=== PATIENT | female | born 1940 | race Caucasian/White ===

== ENCOUNTER 2020-08-04 09:48 | Outpatient (CLI) | payer MEDICARE, SELFPAY | END 2020-08-04 09:49 | disposition home or self-care (01) | LOC: ANHAUDASC 09:49 | PROVIDERS: PCP Family Medicine; Visit Provider Otolaryngology | DX: H93.13 Tinnitus, bilateral (principal); H90.3 Sensorineural hearing loss, bilateral | CPT/HCPCS: 92557; 92567 ==

== ENCOUNTER 2022-09-19 15:18 | Outpatient (CLI) | payer MEDICARE, SELFPAY ==
--- NOTE | ~2022-09-19 | XR_ITS ---
Clinical Indication: Shortness of breath PA and lateral views of the chest: Comparison: 09/11/2019 Findings: The lungs are clear, without evidence of focal consolidation or pleural effusion. Cardiome diastinal silhouette is within normal limits. Bilateral shoulder arthroplasties in place. Vertebropla sty cement noted at what is probably L1. Impression: Clear lungs. Reviewed, dictated and finalized at location [] NTOLOGICAL PHYSIOTHERAPIST Impression: Clear lungs.
== END 2022-09-19 15:19 | disposition home or self-care (01) ==
PROVIDERS: PCP Family Medicine; Visit Provider Nurse Practitioner Family
DX: R06.02 Shortness of breath (principal)
CPT/HCPCS: 71046

== ENCOUNTER → 2023-10-16 10:34 | Outpatient (CLI) | payer MEDICARE, SELFPAY ==
--- NOTE | ~2023-10-16 | XR_ITS ---
XR chest 2V DATE: 10/16/2023 10:57 INDICATION: Chronic obstructive pulmonary disease TECHNIQUE: 2 views COMPARISON: 09/19/2022 PA and lateral chest FINDINGS: Heart size is within normal range. There is thoracic aortic calcification and mild tortuosi ty. No hilar or mediastinal enlargement. Bilateral hyperinflation suggesting obstructive airways disease. No pulmonary infiltrate or consolida tion, pleural effusion or pulmonary vascular congestion or pneumothorax is detected. There is diffuse osteopenia. There is prominent dextroscoliosis of the thoracolumbar spine. Bilateral glenohumeral joint replacement. Fracture deformity and vertebroplasty at L1. Status post posterior lumbar surgical fusion. IMPRESSION: Moderate hyperinflation; no active cardiopulmonary disease Aortic atherosclerosis Reviewed, dictated and finalized at location L. ACTER ACTRESS
== END ==
PROVIDERS: PCP Nurse Practitioner Family; Visit Provider Nurse Practitioner Family
DX: J44.9 Chronic obstructive pulmonary disease, unspecified (principal); I70.0 Atherosclerosis of aorta
CPT/HCPCS: 71046

== ENCOUNTER 2024-02-18 13:31 | Outpatient (CLI) | payer MEDICARE, SELFPAY ==
[2024-02-18 14:08] VITALS: PULSE 84; O2SAT 96
[2024-02-18 14:10] VITALS: PULSE 91; O2SAT 96
[2024-02-18 14:11] VITALS: PULSE 94; O2SAT 96
--- NOTE | 2024-02-18 14:19 | HOMEO2EVAL ---
Evaluation was performed at [facility] Home Oxygen Evaluation RC: Home Oxygen (O2) Evaluation Start: 02/18/24 14:16 Freq: Status: Active Protocol: RPE Activity Type Activity Date Activity User E-sign Co-sign Detail Recorded Client Recorded Date Recorded By Document 02/18/24 14:08 KRM [email or web address] 02/18/24 14:18 KRM Document 02/18/24 14:10 KRM [email or web address] 02/18/24 14:18 KRM Document 02/18/24 14:11 KRM [email or web address] 02/18/24 14:18 KRM 02/18/24 02/18/24 02/18/24 14:08 14:10 14:11 Home O2 Evaluation [Oxygen] -Test Phase Resting Exercise Exercise -Oxygen Delivery Room Air Room Air Room Air [Pulse Oximetry] -Pulse Oximetry (90-100 %) 96 96 96 [Pulse Rate] -Pulse Rate (60-100 beats/min) 84 91 94 [Evaluation] -Activity Tolerance Fair Fair [Exercise] -Ambulation Distance (feet) 250 -Ambulation Distance (meters) 76.19 [Comments] -Home Oxygen Evaluation Comments PT. STOPPED TESTING AFTER WALKING 3 MINS. NO SUPPLEMENTAL O2 NEEDED AT THIS TIME. [Charges] -Evaluation Charges O2 Evaluation by Pulmonary
--- NOTE | 2024-02-18 17:00 | WPDPFTINT ---
PFT Procedure Performed PFT Procedure Performed Spirometry with Pre/Post Bronchodilator Plethysmography (Lung Vol) Diffusing Cap (DLCO) Flow Vol Loop PFT Interpretation This is a pulmonary function test with pre and post-bronchodilator spirometry, plethysmography and diffusing capacity. The test was performed and results interpreted in accordance with the 2019 and 2005 ATS/ERS Task Force guidelines respectively using the Global Lung Function Initiative-2012 reference equations. Patient demonstrated good effort and cooperation. Reproducibility criteria were met. The quality of the pre bronchodilator spirometry maneuver was Grade A and post bronchodilator spirometry maneuver was Grade A. Findings: Spirometry: There is decreased maximal expiratory airflow at all lung volumes with concave expiratory flow tracing. The contour the inspiratory flow tracing is normal. The pre bronchodilator FVC is 2.00 L, 95% predicted. The pre bronchodilator FEV1 is 1.09 L, 68% predicted. The pre bronchodilator FEV1: FVC ratio is 55%. The post bronchodilator FVC is 2.06 L, representing a 3% increase. The post bronchodilator FEV1 is 1.11 L, representing a 1% increase. The post bronchodilator FEV1: FVC ratio is 54%. Plethysmography: The total lung capacity is 4.69 L, 106% predicted. The functional residual capacity is 3.35 L, 131% predicted. The residual volume is 2.57 L, 115% predicted. Diffusing capacity: The diffusing capacity unadjusted for hemoglobin and carboxyhemoglobin is 9.3, 53% predicted. The diffusing capacity adjusted for alveolar volume is 3.26, 76% predicted. In comparison to previous pulmonary function testing on 08/24/2016 the post bronchodilator FVC is unchanged from 2.20 L to 2.06 L. The post bronchodilator FEV1 is unchanged from 1.25 L to 1.11 L. The total lung capacity is unchanged from 4.31 L to 4.69 L. The functional residual capacity is increased from 2.42 L to 3.35 L. The residual volume is increased from 1.87 L to 2.57 L. The diffusing capacity unadjusted for hemoglobin and carboxyhemoglobin is decreased from 13.1 to 9.3. The diffusing capacity adjusted for alveolar volume is unchanged from 3.67 to 3.26. Impression: There is a moderate obstructive abnormality. There is no significant improvement after inhaling a single dose of albuterol. The lung volumes are normal. The diffusing capacity unadjusted for hemoglobin and carboxyhemoglobin is moderately decreased and normalizes when adjusted for alveolar volume. In comparison to previous pulmonary function testing on 08/24/2016 there has been a greater than anticipated time dependent increase in the functional residual capacity and residual volume. There has been a greater than anticipated time dependent decrease in the diffusing capacity unadjusted for hemoglobin and carboxyhemoglobin with no significant change in the FVC, FEV1, total lung capacity and diffusing capacity adjusted for alveolar volume. Clinical correlation is recommended.
== END 2024-02-18 13:32 | disposition home or self-care (01) ==
LOC: ANHPFT 13:32
PROVIDERS: PCP Family Medicine; Visit Provider Physician Assistant
DX: J44.9 Chronic obstructive pulmonary disease, unspecified (principal); I73.9 Peripheral vascular disease, unspecified; I25.10 Atherosclerotic heart disease of native coronary artery without angina pectoris; Z01.812 Encounter for preprocedural laboratory examination; R94.2 Abnormal results of pulmonary function studies
CPT/HCPCS: 94060; 94618; 94726; 94729

== ENCOUNTER 2024-02-29 02:42 | Day surgery (SDC) | payer MEDICARE, SELFPAY ==
[2024-02-25 14:41] VITALS: BMI 26.0
--- NOTE | 2024-02-29 08:05 | WPDANESEPPF ---
Anes - Initial Pre Proc Eval Procedure: Operation Date: 02/29/24 09:30 Proposed Procedures p Esophagogastroduodenoscopy - Mychal Jose MD Date/Time: 02/29/24 08:05 Surgeon: Mychal Jose MD Pre Op Diagnosis: Dysphagia Patient Data Age: 83 Gender: F Height: 1.52 m Weight: 60.5 kg Allergies Allergy/AdvReac Type Severity Reaction Status Date / Time levofloxacin Allergy Intermediate rash, Verified 02/29/24 08:06 vomiting, dizziness Sulfa (Sulfonamide Allergy Mild HIVES Verified 02/29/24 08:06 Antibiotics) adhesive tape Allergy Unknown Rash Verified 02/29/24 08:06 codeine Allergy Unknown Nausea Verified 02/29/24 08:06 erythromycin base Allergy Unknown Rash Verified 02/29/24 08:06 Penicillins Allergy Unknown Rash Verified 02/29/24 08:06 sulfanilamide Allergy Unknown Rash Verified 02/29/24 08:06 trazodone AdvReac Intermediate Dizziness Verified 02/29/24 08:06 Home Medications Medication Instructions Recorded Confirmed Type budesonide 160 mcg-glycopyr 9 2 inh inhalation BID #32.1 grams 07/09/23 02/29/24 Rx mcg-formot 4.8 mcg/actuation HFA inhaler (Breztri Aerosphere) atorvastatin 20 mg tablet 20 mg PO DAILY #90 tabs 11/19/23 02/29/24 Rx sertraline 25 mg tablet 25 mg PO DAILY #30 tabs 11/19/23 02/29/24 Rx albuterol sulfate 90 mcg/actuation See Rx Instructions .Route 12/03/23 02/29/24 Rx aerosol inhaler .COMPLEX #36 grams Patient hx anesthesia problems: none Family hx anesthesia problems: none Results Review: All pre-operative results and documents have been reviewed as part of the pre-operative evaluation. [facility] Past Medical History Medical History (Updated 02/29/24 @ 08:06 by Danie Peraza DO) Anemia Chronic low back pain Hyperlipidemia IBS (irritable bowel syndrome) Lumbar spondylosis Mitral valve insufficiency Obese Osteoarthrosis of knee Surgical History Surgical History (Updated 02/29/24 @ 08:06 by Danie Peraza DO) H/O Spinal surgery History of hysterectomy Family History Family History Mother Family history of malignant neoplasm of brain Father Family history of coronary artery disease Sibling No problems noted. Other Family history of malignant neoplasm of male breast Social History Social History Smoking packs per day: 0.5 Smoking cigarettes per day: 10.0 Years smoked: 40 Smoking pack-years: 20.00 Smoking status: Current every day smoker Tobacco type: cigarettes Second hand tobacco smoke exposure: No Alcohol intake: never Substance use: never Substance use type: does not use Lack of Transportation: No Lack of Food: Never True Current Housing: I Have Housing Concerned About Future Housing: No Difficulty Paying Gas/Electric Bills: No Difficulty Paying for Meds: No Currently Unemployed: No Education: High School Diploma/GED Difficulty w/ Childcare or Family Care: No Living arrangements: with family 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 Informed Consent: The patient's anesthetic plan and its attendant risks and benefits were discussed with the patient/family/POA. Questions were solicited and answers provided to the satisfaction of the patient/f
[2024-02-29 08:09] VITALS: BP 132/72; PULSE 92; RESP 16; TEMP 36.4; O2SAT 96
[2024-02-29] MEDS: LACTATED RINGERS 1,000 ML 150 ML IV CONT (08:18)
--- NOTE | 2024-02-29 08:50 | WPDHPUPDATE1 ---
History and Physical Update Update Date/Time: 02/29/24 08:50 History and Physical has been reviewed, including an updated exam of the patient. There are NO changes in the patient's condition. Risks, benefits, and alternatives have been discussed and questions answered. Patient agrees to proceed with procedure.
[2024-02-29 09:03] VITALS: BP 101/51; PULSE 80; RESP 23; O2SAT 100
[2024-02-29 09:13] VITALS: BP 121/60; PULSE 78; RESP 22; O2SAT 100
[2024-02-29 09:23] VITALS: BP 108/68; PULSE 80; RESP 25; O2SAT 100
== END 2024-02-29 09:26 | disposition home or self-care (01) ==
PROVIDERS: PCP Family Medicine; Visit Provider Internal Medicine Gastroenterology
PROC: 0DJ08ZZ Inspection of Upper Intestinal Tract, Via Natural or Artificial Opening Endoscopic (ICD-10-PCS; CPT 43235; principal; 2024-02-29 09:30)
DX: K20.90 Esophagitis, unspecified without bleeding (principal); D64.9 Anemia, unspecified; E78.5 Hyperlipidemia, unspecified; K58.9 Irritable bowel syndrome, unspecified; M43.06 Spondylolysis, lumbar region; G89.29 Other chronic pain; M54.50 Low back pain, unspecified; I34.0 Nonrheumatic mitral (valve) insufficiency; F17.210 Nicotine dependence, cigarettes, uncomplicated; Z79.51 Long term (current) use of inhaled steroids; Z98.890 Other specified postprocedural states; Z98.1 Arthrodesis status; Z80.8 Family history of malignant neoplasm of other organs or systems; Z80.3 Family history of malignant neoplasm of breast; Z82.49 Family history of ischemic heart disease and other diseases of the circulatory system
CPT/HCPCS: 43239; 88305; J7120

== ENCOUNTER 2024-08-19 12:35 | Outpatient (CLI) | payer MEDICARE, SELFPAY ==
--- NOTE | ~2024-08-19 | XR_ITS ---
EXAMINATION: XR chest 2V DATE: 08/19/2024 12:54 INDICATION: Soreness of breath TECHNIQUE: frontal and lateral views of the chest were obtained. COMPARISON: Chest radiograph dated 10/16/2023 FINDINGS: The lungs are hyperexpanded but clear with no focal airspace opacities, pulmonary edema, pleural effu obdulio or pneumothorax. Arch size is normal. Tortuous and atherosclerotic thoracic aorta. Bilateral rev erse total shoulder arthroplasties. Thoracic dextroscoliosis with moderate spondylosis. Vertebroplast y at a lower body at the thoracolumbar junction. Partially visualized lumbar posterior spinal fusion. IMPRESSION: 1. Chronic hyperexpansion of lungs. No acute cardiopulmonary disease. Reviewed, dictated and finalized at location B. OR QUANTITY SURVEYOR
== END 2024-08-19 12:36 | disposition home or self-care (01) ==
PROVIDERS: PCP Family Medicine; Visit Provider Family Medicine
DX: H92.01 Otalgia, right ear (principal); J40 Bronchitis, not specified as acute or chronic
CPT/HCPCS: 71046

== ENCOUNTER 2024-11-05 11:32 | Outpatient (CLI) | payer MEDICARE, SELFPAY ==
--- NOTE | ~2024-11-05 | XR_ITS ---
EXAMINATION: XR knee LT 3V DATE: 11/05/2024 12:14 INDICATION: Left knee pain and giving out TECHNIQUE: Weight bearing AP, lateral and sunrise of the left knee were obtained COMPARISON: None. FINDINGS: Mild genu varum with severe joint space narrowing in the medial compartment. There are small marginal ossified small 3 compartments of the knee. Likely degenerative subarticular cystlike change at the c ephalad aspect of the patellar apical ridge. Small enthesophyte at the proximal pole of the patella. No fracture. No joint effusion. IMPRESSION: 1. 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 Reviewed, dictated and finalized at location B. MACEUTICAL SERVICE REPRESENTATIVE
--- OUTSIDE RECORDS SUMMARY | 2024-11-05 12:57 | XMS_ITS | Clinical Summary ---
Author Organization [facility] Address [address] [place] [id number] Care Team Providers Care Atv Mechanic Name Role Phone Emile Mercado MD Primary Care Provider + [phone] Allergies Active Allergy Reactions Criticality Noted Date Comments Adhesive Redness Low 02/25/2019 Adhesive Tape-Silicones Rash,Other (See comments) Medium 11/15/2011 blisters Reaction: RASH, Codeine Other (See comments),Nausea only,Vomiting,Heada carroll,Nausea And Vomiting Low 2011 Reaction: LIGHTHEADEDNESS, , Reaction: Nausea, Vomiting, , Egg White Diarrhea Low 06/20/2013 Egg White Extract Diarrhea Low 02/25/2019 Erythromycin Hives,Shortness of breath,Itching Low 2011 Reaction: HIVES, Reaction: Trouble Breathing, , Erythromycin Lactobionate Diarrhea Low 02/25/2019 Levofloxacin Nausea & Vomiting Low 08/01/2016 Loss control of body functions Penicillin Rash Medium 02/25/2019 Penicillins Hives,Shortness of breath,Urticaria Medium 2011 Reaction: HIVES, Reaction: Trouble Breathing, , Sulfa (Sulfonamide Antibiotics) Hives Reaction: HIVES, Reaction: Hives, , Sulfasalazine Urticaria Medium 2011 Tetracycline Hcl Itching Low 2011 Medications SUMAtriptan (IMITREX) 6 mg/0.5 mL solution inject 0.5 milliliter by subcutaneous route once; may repeat in 1 hour if pain returns/increase s in severity; (max2 doses/24 hours) 0 vial 0 11/23/19 16 Active Additional Information Patient not taking.Reported on 11/08/2023 atorvastatin (LIPITOR) 20 mg tablet take 1 tablet by oral route every day 0 0 11/23/19 16 Active Additional Information Patient taking differently:20 mgoral Daily, Reported on 11/08/2023 fluticasone propionate (FLOVENT HFA) 110 mcg/actuation inhaler Inhale 2 puffs daily 02/02/20 17 Active naproxen (ALEVE) 220 mg tablet Take 1 tablet (220 mg total) by mouth 2 (two) times a day with meals Active albuterol HFA (PROVENTIL HFA,VENTOLIN HFA,PROAIR HFA) 90 mcg/actuation inhaler 2 puffs by inhal. via small vol.nebulizer route 2 (two) times a day 01/24/20 19 Active HYDROcodone-acetam inophen (NORCO) 5-325 mg per tabletIndications: Pain Take 1 tablet by mouth every 6 (six) hours as needed for pain 8 tablet 02/26/20 19 Active Additional Information Patient not taking.Reported on 11/08/[address] (CYMBALTA) 30 mg capsule Take 30 mg by mouth daily Active guaifenesin (MUCINEX ORAL) Take by mouth A ctive omeprazole OTC (PriLOSEC OTC) 20 mg EC tablet Take 20 mg by mouth daily before breakfast Active neomycin-polymyxin B-dexAMETHasone (POLYDEX) 3.5 mg/g-10,000 unit/g-0.1 % ointment APPLY A THIN LAYER ON EYELID AT BEDTIME. 04/28/20 20 Active fluticasone-umecli din-vilanter (Trelegy Ellipta) 100-62.5-25 mcg inhaler Inhale 1 puff daily Active olopatadine (PATANOL) 0.1 % ophthalmic solutionIndication s:Allergic Conjunctivitis 1 drop 2 (two) times a day Active peg 400-propylene glycol (SYSTANE) 0.4-0.3 % ophthalmic solution Administer 1 drop into both eyes as needed Active cholecalciferol (VITAMIN D-3) 25 mcg (1,000 unit) tablet Take 1,000 Units by mouth daily Active acetaminophen (TYLENOL) 325 mg tablet Take 325 mg by mouth every 4 (four) hours as needed Active ciprofloxacin (CIPRO) 500 mg tablet Take 1 tablet (500 mg total) by mouth Active diclofenac sodium (VOLTAREN) 1 % gel Apply 2 g topically 4 (four) times a day 12/16/19 21 Active sertraline (ZOLOFT) 25 mg tablet Take 25 mg by mouth daily 05/13/20 22 Active traZODone (DESYREL) 50 mg tablet Take 50 mg by mouth nightly 03/02/20 22 Active doxycycline 100 mg tablet Take 1 tablet/capsule (100 mg total) by mouth 2 (two) times a day 10/24/19 24 Active prednisoLONE acetate (PRED FORTE) 1 % ophthalmic suspension 1 drop 2 (two) times a day 10/10/19 24 Active predniSONE (DELTASONE) 10 mg tablet Take 3 tablets (30 mg) by mouth daily 10/16/19 24 Active budesonide-glycopy r-formoterol (Breztri Aerosphere) 160-9-4.8 mcg/actuation HFA aerosol inhaler Inhale Acti ve ergocalciferol (VITAMIN D) 50,000 unit capsuleIndications :Vitamin D Deficiency Take 1 capsule (50,000 Units total) by mouth once a week 12 capsule 04/24/20 24 Active Active Problems Problem Noted Date Diagnosed Date Closed displaced fracture of fifth metatarsal bone of left foot 02/18/2019 Closed compression fracture of L1 lumbar vertebr a, sequela 02/12/2019 Overview (02/12/2019): Added automatically from request for surgery [id number] S/P lumbar fusion 08/31/2018 Neurogenic claudication 08/06/2018 Overview (08/06/2018): Added automatically from request for surgery [id number] Closed fracture of sacrum ([facility]) 04/27/2018 Lumbago 01/27/2016 Sciatica 12/30/2015 Postlaminectomy syndrome of lumbar region 2015 Inflammation of sacroiliac joint 12/30/2015 Osteoporosis 12/28/2015 Overview (04/29/2019): 02/2019 fell and suffered an ankle fracture and L1 compression fracture for which she underwent kyphoplasty. She was on Fosamax many years ago for 3-4 years. Fatigue 12/28/2015 Arthritis 12/28/2015 Cephalalgia 12/28/2015 Notalgia 12/28/2015 Chronic pain 12/28/2015 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 Overview (01/12/2017): Arthritis of right hip History of knee surgery 11/23/2015 Overview (01/12/2017): History of right knee joint replacement Spinal stenosis of lumbar region 11/23/2015 Overview (01/12/2017): Spinal stenosis of lumbar region Osteoarthritis of knee 11/23/2015 Overview (01/12/2017): Primary osteoarthritis of right knee Leakage of breast implant 04/20/2014 Asthma Neuropathy Overview (04/27/2018): RLE Immunizations Name Administration Dates Next Due Pfizer SARS-CoV-2 Monovalent Vaccination (12+ Yrs) PURPLE 12/27/2020,12/02/2020 Surgical History Surgery Date Site/Laterality Comments TOTAL ABDOMINAL HYSTERECTOMY Hysterectomy, total MASTECTOMY Bilateral Mastectomy, bilateral for pre-cancer CARPAL TUNNEL RELEASE Bilateral Carpal tunnel release KNEE ARTHROPLASTY Right Knee replacement ROTATOR CUFF REPAIR Right Rotator cuff repair CERVICAL SPINE SURGERY Surgery, cervical spine SPINAL FUSION Spinal fusion, lumbar SHOULDER ARTHROPLASTY Bilateral Shoulder replacement APPENDECTOMY Appendectomy MD NEUROPLASTY &/TRANSPOS ME BERNARD NRV CARPAL TUNNE Neuroplasty Decompression Median Nerve At Carpal Tunnel - (Added by TW Conv) CATARACT EXTRACTION, BILATERAL EYE SURGERY Bilateral cataracts HEMORRHOID SURGERY Medical History Medical History Date Comments Hypercholesterolemia High choles terol; Comments: JKD 11/23/2015 - Spinal stenosis Spinal stenosis Delayed emergence from general anesthesia PONV (postoperative nausea and vomiting) Heart murmur Irritable bowel syndrome History of transfusion Arthritis Asthma Neuropathy (CMS/HCC) RLE Chronic bronchitis (HCC) Migraines Motion sickness History of rheumatic fever as a child Family History Medical History Relation Name Comments Breast cancer Cousin COPD Father Chronic Pain Father Chronic pain - (Added by TW Conv) Heart disease Father Family history of cardiac disorder - (Added by TW Conv) Cancer Mother Breast cancer Mother's Sister COPD Sister Chronic Pain Sister Chronic pain - (Added by TW Conv) Heart disease Sister Multiple sclerosis Sister Relation Name Status Comments Cousin Father Mother Mother's Sister Sister Social History Tobacco Use Types Packs/Day Years Used Date Smoking Tobacco: Light Smoker Smokeless Tobacco: Never Tobacco Cessation:Ready to Q uit: No; Counseling Given: Yes Comments:every once in awhile will have 1 cigg Alcohol Use Standard Drinks/Week Comments No 0 (1 standard drink = 0.6 oz pur e alcohol) Comments No Sex and Gender Information Value Date Recorded Sex Assigned at Not on file Legal Sex Female 7:33 PM PLATEMAKER Gender Identity Not on file Sexual Orientation Not on file Obstetrics History Last Filed Vital Signs Vital Sign Reading Time Taken Comments Blood Pressure 134/64 07/23/2024 9:56 AM CDT Pulse 81 07/23/2024 9:56 AM CDT Temperature 36.1 ??C (97 ??F) 07/23/2024 9:56 AM CDT Respiratory Rate 20 07/23/2024 9:56 AM CDT Oxygen Saturation 99% 07/23/2024 9:56 AM CDT Inhaled Oxygen Concentration - - Weight 58.5 kg (129 lb) 07/23/2024 9:56 AM CDT Height 147.3 cm (4' 10 ) 11/08/2023 10:10 AM PLATEMAKER Body Mass Index 26.96 11/08/2023 10:10 AM PLATEMAKER Plan of Treatment Health Maintenance Due Date Last Done Comments Depression Screening 1940 Fall Risk Assessment 1940 DTaP/Tdap/Td Vaccine (1 - Tdap) 1951 Hepatitis B Screening 1958 Zoster Vaccine (1 of 2) 1990 Well Visit 65+ 2005 Pneumococcal vaccine 65+ (2 of 2 - PPSV23 or PCV20) 10/21/2018 08/26/2018 Covid-19 Vaccine (3 - 2023-2 5 season) 2024 12/27/2020, 12/02/2020 Influenza Vaccine (#1) 2024 9, 08/26/2018, 08/07/2016, Additional history exists Osteoporosis Screening-Bone Density Scan 11/08/2025 11/08/2023, 05/22/2022, 05/19/2021, Additional history exists Medical Devices Implanted Type Area Nuclear Technologist Device Identifier Shelf Expiration Date Model / Serial / Lot [employer] [id number] Vertaplex Hv Autoplex Without Needle Delivery System Kit Bone - [id number] - [id number] Implanted:Qty : 1 on 02/25/2019 by Ketan Hermosillo MD at [facility] Bone Cement N/A: Spine Lumbar [employer] [id number] 03/07/2021 [id number] / [id number] / [id number] Si-Bone 7045-90 Ifuse Implant System 7mm 45mm Sacroiliac Anna System Spinal - [id number] Implanted:Qty : 1 on 04/26/2018 by Ketan Hermosillo MD at [facility] Right: Spine Lumbar Si-Bone 01/21/2023 7045-90 / / [id number] Si-Bone 7040-90 Ifuse Implant System 7mm 40mm Sacroiliac System Spinal Fixation - [id number] Implanted:Qty : 1 on 04/26/2018 by Ketan Hermosillo MD at [facility] Right: Spine Lumbar Si-Bone 01/11/2023 7040-90 / / [id number] Si-Bone 7040-90 Ifuse Implant System 7mm 40mm Sacroiliac System Spinal Fixation - [id number] Implanted:Qty : 1 on 04/26/2018 by Ketan Hermosillo MD at [facility] Right: Spine Lumbar Si-Bone 12/10/2022 7040-90 / / [id number] [employer] [id number] Vertaplex High Viscosity; Twin Pack Cement 20 Gm Bone 30% Barium - [id number] Implanted:Qty : 1 on 04/26/2018 by Ketan Hermosillo MD at [facility] Right: Spine Lumbar [employer] 06/07/2020 [id number] / / [id number] Spinal Elements [id number] Mercury Classic Thread Cap Locking Nonsterile - [id number] Implanted:Qty : 6 on 08/30/2018 by Ketan Hermosillo MD at [facility] Spine Lumbar Spinal Elements [id number] / / Spinal Elements [id number] Mercury Od5.5 Mm L55 Mm Straight Zachary Spinal Nonsterile - [id number] Implanted:Qty : 2 on 08/30/2018 by Ketan Hermosillo MD at [facility] Spine Lumbar Spinal Elements 56112-136 / / Cage Tibond [id number] m 5d - [id number] Implanted:Qty : 2 on 08/30/2018 by Ketan Hermosillo MD at [facility] Spine Lumbar Spinal Elements [id number] / / Medtronic Sofamor Danek [id number] Infuse 14mm 23mm Absorbable Sponge Sterile Water Syringe Needle - [id number] Implanted:Qty : 1 on 08/30/2018 by Ketan Hermosillo MD at [facility] Spine Lumbar Medtronic Sofamor Danek 01/05/2019 [id number] / / [id number] Spinal Elements [id number] Mercury Classic 6.5mm 45mm Polyaxial Cannulated Spine Screw Bone - [id number] Implanted:Qty : 2 on 08/30/2018 by Ketan Hermosillo MD at [facility] Spine Lumbar Spinal Elements [id number] / / Spinal Elements [id number] Mercury Classic 6.5mm 50mm Polyaxial Cannulated Spine Screw Bone - [id number] Implanted:Qty : 2 on 08/30/2018 by Ketan Hermosillo MD at [facility] Spine Lumbar Spinal Elements [id number] / / Spinal Elements [id number] Mercury Classic Polyaxial Cannulated Spine Screw Bone - [id number] Implanted:Qty : 1 on 08/30/2018 by Ketan Hermosillo MD at [facility] Spine Lumbar Spinal Elements [id number] / / Spinal Elements [id number] Mercury Classic Od7.5 Mm L45 Mm Polyaxial Cannulated Spine Screw Bone Nonsterile - [id number] Implanted:Qty : 1 on 08/30/2018 by Ketan Hermosillo MD at [facility] Spine Lumbar Spinal Elements [id number] / / Procedures Procedure Name Priority Date/Time Associated Diagnosis Comments DEXA TBS AXIAL SKELETON BONE DENSITY 1 OR MORE SITES Schedule Routine, Read Routine (OP Routine) 11/08/2023 10:10 AM PLATEMAKER Age-related osteoporosis without current pathological fracture from Last 3 Months or Most Recently Relevant to Health Maintenance Results * Dexa TBS Axial Skeleton Bone Density 1 or more sites (11/08/2023 10:10 AM PLATEMAKER) Anatomical Region Laterality Modality Wrist, Body N/A Radiographic Rosie ging Narrative 11/08/2023 2:24 PM PLATEMAKER Patient Name: Mahin Marshall Date of : 1940 Date of scan: 11/08/2023 Bone mineral density was performed on a [employer] Discovery Densitometer. ?? Based on machine cross-calibration and precision studies the least significant changes of this densitometer is 0.024 g/cm2 at the spine, 0.020 g/cm2 at the total proximal femur, and 0.014g/cm2 at the forearm. HISTORY: This is a 83 y.o. postmenopausal female with a history of osteoporosis and vitamin D deficiency. She reports that she has been smoking. She has never used smokeless tobacco. Currently on treatment with vitamin D, previously treated with alendronate (Fosamax), zoledronic acid (Reclast), and abaloparatide (Tymlos), and current complaint of back pain. INDICATIONS: Menopause status, treatment monitoring, vitamin D deficiency, and history of osteoporosis. FINDINGS: BONE MINERAL DENSITY OF THE PROXIMAL FEMUR Bone Mineral Density (BMD) of the left hip total was found to be 0.800 gm/cm2. This corresponds to a T-score standard deviations from the mean of young adults of -1.2. Femoral neck is 0.635 gm/cm2 with a T-score (standard deviations from the mean of young adults) of -1.9. When compared to the previous study of 05/22/2022 there has been no significant changes in bone density. BONE MINERAL DENSITY OF THE FOREARM Bone Mineral density (BMD) of the left proximal 1/3 of the radius measures 0.510 gm/cm2. This corresponds to a T-score (standard deviations from the mean of young adults) of -3.1. When compared to the previous study of 05/22/2022 there has been a -0.020 gm/cm (-3.9%) decrease in bone density that is considered significant. A forearm bone density study was performed instead of a spine study because of history of spinal surgery. SUMMARY: Bone mineral density shows evidence of osteoporosis and marked increase risk of fracture. There has been a significant decrease in bone density since previous measurement. The lumbar spine Trabecular Bone Score TBS was not obtained due to the bone mineral density of the spine not being acquired. ADDITIONAL COMMENTS: Postmenopausal Women and Men Over 50: Diagnostic criteria: Osteoporosis: BMD at or below -2.5 T-score; Osteopenia (low bone mass): BMD between -1.0 and -2.5 T-score. If the patient has a history of a fragility fracture, a fracture that occurred with trauma equivalent to a fall from a standing position or less, then the diagnosis is osteoporosis regardless of bone density. The history and data sections of the bone mineral density scan were prepared by Suze Mascorro(Mendy) CBDT ??who is accredited by the International Society of Clinical Densitometry. The overall patient assessment and scan interpretation were performed by Geena Carroll M.D. ??who is certified by the International Society of Clinical Densitometry. [id number] us Geena Carroll MD IMG DXA PROCEDURES Final Re sult from Last 3 Months or Most Recently Relevant to Health Maintenance Insurance [facility] MEDICARE [facility] MEDICARE [facility] [place] Advance Directives For more information, please contact: [phone] * Full Code (Latest Code Status on File) Date Activated Date Inactivated Comments 08/30/2018 11:10 PM 09/03/2018 6:35 PM * Full Code Date Activated Date Inactivated Comments 04/26/2018 10:07 PM 04/27/2018 4:57 PM Care Teams Atv Mechanic Relationship Specialty Start Date End Date Emile Mercado MD PCP - General 01/05/17
--- OUTSIDE RECORDS SUMMARY | 2024-11-05 12:57 | XMS_ITS | Encounter Summary ---
Author Organization [facility] Address [address] [place] [address] Phone Care Team Providers Care Lead Painter Name Role Phone Emile Mercado MD Primary Care Provider Encounter Details Date Type Department Care Team (Late st Contact Info) Description 01/07/2019 Orders Only [facility] Scanning, Provider Social History Tobacco Use Types Packs/Day Years Used Date Smoking Tobacco: Light Smoker Smokeless Tobacco: Never Comments:1 cig every 5-6 day s Alcohol Use Standard Drinks/Week Comments No 0 (1 standard drink = 0.6 oz pur e alcohol) Comments No Sex and Gender Information Value Date Recorded Sex Assigned at Not on file Legal Sex Female 7:33 PM FOOD INSPECTOR Gender Identity Not on file Sexual Orientation Not on file documented as of this encounter Plan of Treatment Not on file documented as of this encounter Procedures Procedure Name Priority Date/Time Associated Diagnosis Comments SCAN - RADIOLOGY/IMAGING 01/07/2019 documented in this encounter Results * SCAN - RADIOLOGY/IMAGING (01/07/2019) Anatomical Region Laterality Modality Other us Provider Scanning Final Result documented in this encounter Visit Diagnoses Not on filedocumented in this encounter Care Teams Lead Painter Relationship Specialty Start Date End Date Emile Mercado MD PCP - General 01/05/17 documented as of this encounter
--- OUTSIDE RECORDS SUMMARY | 2024-11-05 12:57 | XMS_ITS | Encounter Summary ---
Author Organization [facility] Address [address] [facility] [address] [place] [address] Care Team Providers Care Joint Runner Name Role Phone Emile Mercado MD Primary Care Provider + [phone] Emile Mercado MD Primary Care Provider + [phone] Encounter Details Date Type Department Care Team (Late st Contact Info) Description 11/13/2016 Orders Only [facility] ProviderMarla MD [address] [place] [id number] Social History Tobacco Use Types Packs/Day Years Used Date Smoking Tobacco: Every Day Comments Unknown Sex and Gender Information Value Date Recorded Sex Assigned at Not on file Legal Sex Female 7:33 PM CREDIT ASSISTANT Gender Identity Not on file Sexual Orientation Not on file documented as of this encounter Plan of Treatment Not on file documented as of this encounter Procedures Procedure Name Priority Date/Time Associated Diagnosis Comments CARDIOLOGY REPORT 11/13/2016 documented in this encounter Results * CARDIOLOGY REPORT (11/13/2016) Anatomical Region Laterality Modality Other Narrative 11/13/2016 Ordered by an unspecified provider. Historical Provider [facility] OMEGA ARCHIBALD Final Result documented in this encounter Visit Diagnoses Not on filedocumented in this encounter Care Teams Joint Runner Relationship Specialty Start Date End Date Emile Mercado MD PCP - General 01/05/17 Emile Mercado MD PCP - General 11/23/15 01/04/17 documented as of this encounter
--- OUTSIDE RECORDS SUMMARY | 2024-11-05 12:57 | XMS_ITS | Referral Summary ---
Author Organization [facility] Address [address] [place] [address] Care Team Providers Care Cash Shortage Investigator Name Role Phone Capri Lamb MD Unavailable [phone] Emile Mercado MD Primary Care Provider [phone] Braydon Valadez MD Unavailable [phone] Emmy Nolasco PA-C Unavailable Source Comments [facility],non-owned Affiliates and Associated Physician Practices is amultiple site organization consisting of ambulatory clinics and hospital sitesin [place], [place], [place] and [place]. This disclosure is being madepursuant to the Care Everywhere program and may not contain all information available regarding this patient. Last updated 18.[facility] Allergies Active Allergy Reactions Criticality Noted Date Comments Tetracycline Hcl Itching 2011 Adhesive Sensitivity Rash,Other Low 11/15/2011 blisters Codeine Nausea and/or Vomiting,Headache 2011 Eggs Diarrhea 06/20/2013 Erythromycin Itching 2011 Levofloxacin 08/01/2016 Loss control of body functions Penicillins Urticaria 2011 Sulfa Drugs Urticaria 2011 Trazodone Dizziness 06/19/2022 Medications * Be aware that medications may not be up to date on this document. Alwaysverify current medications with the patient. Medication Sig Dispensed Refills Start Date End Date Status atorvastatin (LIPITOR) 20 MG tablet Take 1 (one) tablet by mouth at bedtime Active Polyethyl Glycol-Propyl Glycol (SYSTANE OP) Activ e Fluticasone-Umeclid in-Vilant (TRELEGY ELLIPTA) 100-62.5-25 MCG/INH Inhale 1 (one) puff by mouth once daily Active olopatadine (PATADAY) 0.2 % ophthalmic solution Instill 1 (one) drop into both eyes once daily Active ciprofloxacin (CIPRO) 500 MG tablet Take 1 (one) tablet by mouth 1 Hour prior to Dental Appointment Active diclofenac sodium (VOLTAREN) 1 % gelIndications:Acut e pain of right shoulder,History of reverse total replacement of right shoulder joint Apply 2 (two) g to affected area 4 times daily 350 g 3 12/15/2020 Active albuterol HFA (Proventil; Ventolin; Proair) 108 (90 Base) MCG/ACT inhaler Inhale 2 (two) puffs by mouth every 6 hours as needed Active vitamin D3 (Cholecalciferol) 25 MCG (1000 UNITS) tablet Take 1 (one) tablet by mouth once daily Active naproxen sodium (Aleve) 220 MG tablet Take 1 (one) tablet by mouth 2 times daily Active SUMAtriptan (Imitrex) 6 MG/0.5ML injection Inject 6 (six) mg subcutaneously as needed for Migraine 2 Each 2 06/19/2022 Active sertraline (Zoloft) 25 MG tablet Take 1 (one) tablet by mouth once daily 12/11/2022 Active Active Problems Problem Noted Date Diagnosed Date Asthma 04/04/2022 Neuropathy 04/04/2022 Overview (04/04/2022): RLE Closed displaced fracture of fifth metatarsal bone of left foot 02/18/2019 Closed compression fracture of L1 lumbar vertebr a, sequela 02/12/2019 Overview (04/04/2022): Added automatically from request for surgery [id number] S/P lumbar fusion 08/31/2018 Closed fracture of sacrum 04/27/2018 Lumbago 01/27/2016 Postlaminectomy syndrome of lumbar region 2015 Inflammation of sacroiliac joint 12/30/2015 Sciatica 12/30/2015 Cephalalgia 12/28/2015 Chronic pain 12/28/2015 Osteoporosis 12/28/2015 Overview (04/04/2022): 02/2019 fell and suffered an ankle fracture and L1 compression fracture for which she underwent kyphoplasty. She was on Fosamax many years ago for 3-4 years. 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 Migraine 2012 Social History Tobacco Use Types Packs/Day Years Used Date Smoking Tobacco: Some Days Cigarettes 0.3 3 Started: 12/01/2016; Last attempted to quit: 12/01/2019 Smokeless Tobacco: Former Tobacco Cessation:Ready to Q uit: Not Asked; Counseling Given: Not Answered Comments:HAD QUIT PRIOR Alcohol Use Standard Drinks/Week Comments No 0 (1 standard drink = 0.6 oz pur e alcohol) Sex and Gender Information Value Date Recorded Sex Assigned at Not on file Gender Identity Not on file Sexual Orientation Not on file Last Filed Vital Signs Vital Sign Reading Time Taken Comments Blood Pressure 112/70 12/18/2022 10:28 AM CDT Pulse 88 12/18/2022 10:28 AM CDT Temperature 36 ??C (96.8 ??F) 03/25/2021 2:38 PM CDT Respiratory Rate 14 12/18/2022 10:28 AM CDT Oxygen Saturation 97% 12/18/2022 10:28 AM CDT Inhaled Oxygen Concentration - - Weight 64.9 kg (143 lb) 12/18/2022 10:28 AM CDT Height 149.9 cm (4' 11 ) 12/18/2022 10:28 AM CDT Body Mass Index 28.88 12/18/2022 10:28 AM CDT Functional Status Functional Status Response Date of Assess ment Is person deaf or have serious hearing difficult y? No 05/26/2020 Is person blind or have serious difficulty seein g? No 05/26/2020 Does person have serious dif ficulty walking/climbing stairs? No 05/26/2020 Does person have difficulty dressing/bathing? No 05/26/2020 Does person have difficulty doing errands alone? No 05/26/2020 Cognitive Status Response Date of Assessm ent Does person have difficulty concentrating/remembering/making decisions? No 05/26/2020 Plan of Treatment Not on file Medical Devices Implanted Type Area Shingle Cutter Device Identifier Shelf Expiration Date Model / Serial / Lot Fixed Locking Screw 4.75mm X 15mm Implanted:Qty: 1 on 06/20/2013 by Capri Lamb MD at [facility] Left: Shoulder 03/07/2023 [id number] / / [id number] Linr Arcom Xlg 44-36 Std Implanted:Qty: 1 on 06/20/2013 by Capri Lamb MD at [facility] Left: Shoulder [employer] 05/07/2018 [id number] / / [id number] Floseal 10ml Implanted:Qty: 1 on 06/20/2013 by Capri Lamb MD at [facility] Left: Shoulder [employer] 09/06/2014 [id number] / / [id number] Fixed Locling Screw 4.75mm X 15mm Implanted:Qty: 1 on 06/20/2013 by Capri Lamb MD at [facility] Left: Shoulder 04/06/2023 [id number] / / [id number] Glenosphere Mini Baseplate 25mm Implanted:Qty: 1 on 06/20/2013 by Capri Lamb MD at [facility] Left: Shoulder 04/06/2023 [id number] / / [id number] Comp Rev Shld Stef Basplt 36mm Implanted:Qty: 1 on 06/20/2013 by Capri Lamb MD at [facility] Left: Shoulder [employer] 04/06/2023 [id number] / / [id number] Central Screw 6.5mm X 30mm Implanted:Qty: 1 on 06/20/2013 by Capri Lamb MD at [facility] Left: Shoulder 05/07/2023 [id number] / / [id number] Fixed Locking Screw 4.75mm X 30mm Implanted:Qty: 1 on 06/20/2013 by Capri Lamb MD at [facility] Left: Shoulder 02/04/2023 [id number] / / [id number] Scrw Fix Adriana 4.75mm X 20mm Implanted:Qty: 1 on 06/20/2013 by Capri Lamb MD at [facility] Left: Shoulder [employer] 03/07/2023 [id number] / / [id number] Shoulder Stem 12mm X 55mm Implanted:Qty: 1 on 06/20/2013 by Capri Lamb MD at [facility] Left: Shoulder 03/07/2023 [id number] / / [id number] Humeral Tray 44mm Standard Implanted:Qty: 1 on 06/20/2013 by Capri Lamb MD at [facility] Left: Shoulder 06/07/2023 [id number] / / [id number] Small Cement Restrictor Implanted:Qty: 1 on 02/16/2017 by Capri Lamb MD at [facility] Right: Shoulder [employer] 09/06/2021 [id number] / / [id number] Cable Orth Cocr 2mm 75mm Troch Clp Implanted:Qty: 1 on 02/16/2017 by Capri Lamb MD at [facility] Right: Shoulder [employer] 12/27/2025 [id number] / / [id number] Alonso Bone Holly-G Hv 40/20 Implanted:Qty: 1 on 02/16/2017 by Capri Lamb MD at [facility] Right: Shoulder [employer] 03/07/2017 [id number] / / [id number] Screw 4.75mm 15mm 3.5mm Shldr Fx Ang Lck Implanted:Qty: 1 on 02/16/2017 by Capri Lamb MD at [facility] Right: Shoulder [employer] 01/30/2027 [id number] / / [id number] Screw 4.75mm 15mm 3.5mm Shldr Fx Ang Lck Implanted:Qty: 1 on 02/16/2017 by Capri Lamb MD at [facility] Right: Shoulder [employer] 12/06/2026 [id number] / / [id number] Tray Hum 44mm Cmprh Std Shldr Cocr Rvrs Implanted:Qty: 1 on 02/16/2017 by Capri Lamb MD at [facility] Right: Shoulder [employer] 02/08/2027 [id number] / / [id number] Scrw Comp Rev Ctrl 6.5mm X 25mm Implanted:Qty: 1 on 02/16/2017 by Capri Lamb MD at [facility] Right: Shoulder [employer] 01/22/2027 [id number] / / [id number] Mini Humeral Stem 10mm X 83mm Implanted:Qty: 1 on 02/16/2017 by Capri Lamb MD at [facility] Right: Shoulder [employer] 01/01/2027 [id number] / / [id number] Brng Hum 36-44mm Cmprh Std Shldr Arcomxl Implanted:Qty: 1 on 02/16/2017 by Capri Lamb MD at [facility] Right: Shoulder [employer] 02/08/2022 [id number] / / [id number] Screw 4.75mm 25mm 3.5mm Shldr Fx Ang Lck Implanted:Qty: 1 on 02/16/2017 by Capri Lamb MD at [facility] Right: Shoulder [employer] 01/12/2027 [id number] / / [id number] Screw 4.75mm 30mm 3.5mm Shldr Fx Ang Lck Implanted:Qty: 1 on 02/16/2017 by Capri Lamb MD at [facility] Right: Shoulder [employer] 04/20/2026 [id number] / / [id number] Bsplt Glnd Cmprh 25mm Mini Tpr Adpr Rvrs Implanted:Qty: 1 on 02/16/2017 by Capri Lamb MD at [facility] Right: Shoulder [employer] 01/30/2027 [id number] / / [id number] Cmpnt Glnd 36mm Std Glenosphere Clr Cd Implanted:Qty: 1 on 02/16/2017 by Capri Lamb MD at [facility] Right: Shoulder [employer] 02/08/2027 [id number] / / [id number] Explanted Type Area Shingle Cutter Device Identifier Shelf Expiration Date Model / Serial / Lot Stem Hum W/Align Tpr 45deg 12mm X 140mm Explanted:Qty: 1 on 02/16/2017 at [facility] Right: Shoulder [employer] 12/24/2026 [id number] / / [id number] Advance Directives Documents on File Type Date Recorded Patient Nurses Medical Assistants Phlebotomists Expl anation Adv Directive/Living Will/POA 06/24/2013 5:12 PM * Full Code (Latest Code Status on File) Date Activated Date Inactivated Comments 02/16/2017 12:55 PM 02/19/2017 3:01 PM * FULL RESUSCITATION Date Activated Date Inactivated Comments 06/20/2013 10:05 AM 06/23/2013 12:55 PM Care Teams Cash Shortage Investigator Relationship Specialty Start Date End Date Emile Mercado MD [address] [place] [phone] PCP - General Family Medicine 06/05/13 [place] [address] [place] [id number] Orthopedic Surgery 01/22/13 [place] [address] [address] [place] [id number] Orthopedic Surgery 03/11/15 Emmy Nolasco, PA-C [address] [address] [place] [phone] Physician Broke Handler Orthopedic Surgery 12/15/20
--- OUTSIDE RECORDS SUMMARY | 2024-11-05 12:57 | XMS_ITS | Clinical Summary ---
Author Organization [facility] Address [address] [address] Care Team Providers Care Communications Officer Name Role Phone Capri Lamb MD Unavailable [phone] Emile Mercado MD Primary Care Provider [phone] Braydon Valadez MD Unavailable [phone] Emmy Nolasco PA-C Unavailable Source Comments [facility],non-owned Affiliates and Associated Physician Practices is amultiple site organization consisting of ambulatory clinics and hospital sitesin [place], [place] and [place]. This disclosure is being madepursuant to the Care Everywhere program and may not contain all information available regarding this patient. Last updated 18.[facility] Allergies Active Allergy Reactions Criticality Noted Date [...] (04/04/2022): Added automatically from request for surgery [id number] S/P lumbar fusion 08/31/2018 Closed fracture of [...] Mass Index 28.88 12/18/2022 10:28 AM CDT Plan of Treatment Health Maintenance Due Date Last Done Comments BONE DENSITY TESTING 1940 MEDICARE AWV ? 12 MONTHS 1940 DTAP/TDAP/TD VACCINES (1 - Tdap) 1959 PNEUMOCOCCAL VACCINE 50+ (1 of 2 - PCV) 1959 ZOSTER VACCINE (1 of 2) 1990 Respiratory Syncytial Virus (RSV) Vaccine Pt: or over 60 yrs (1 - 1-dose 75+ series) 2015 COVID-19 VACCINE (3 - 2023-2 5 season) 2024 12/27/2020, 12/02/2020 INFLUENZA VACCINE (#1) 2024 DEPRESSION SCREENING 10/08/2024 HEPATITIS B VACCINE Aged Out No longe r eligible based on patient's age to complete this topic HIB VACCINE Aged Out No longer eligi ble based on patient's age to complete this topic HPV VACCINE Aged Out No longer eligi ble based on patient's age to complete this topic MENINGOCOCCAL (Group B) VACCINE Aged Out No longer eligible b ased on patient's age to complete this topic MENINGOCOCCAL VACCINE Aged Out No rubina jeanine eligible based on patient's age to complete this topic Medical Devices Implanted Type Area Clamp Carrier Operator Device Identifier Shelf Expiration Date Model / Serial / Lot Fixed Locking Screw 4.75mm X 15mm Implanted:Qty: 1 on 06/20/2013 by Capri Lamb MD at [facility] Left: Shoulder 03/07/2023 [id number] / / [id number] Linr Arcom Xlg 44-36 Std Implanted:Qty: 1 on 06/20/2013 by Capri Lamb MD at [facility] Left: Shoulder [employer] 05/07/2018 [id number] / / [id number] Floseal 10ml Implanted:Qty: 1 on 06/20/2013 by Capri Lamb MD at [facility] Left: Shoulder [employer] 09/06/2014 [id number] / / [id number] Fixed Locling Screw 4.75mm X 15mm Implanted:Qty: 1 on 06/20/2013 by Capri Lamb MD at [facility] Left: Shoulder 04/06/2023 [id number] / / [id number] Glenosphere Mini Baseplate 25mm Implanted:Qty: 1 on 06/20/2013 by Capri Lamb MD at [facility] Left: Shoulder 04/06/2023 [id number] / / [id number] Comp Rev Shld Stef Basplt 36mm Implanted:Qty: 1 on 06/20/2013 by Capri Lamb MD at [facility] Left: Shoulder [employer] 04/06/2023 [id number] / / [id number] Central Screw 6.5mm X 30mm Implanted:Qty: 1 on 06/20/2013 by Capri Lamb MD at [facility] Left: Shoulder 05/07/2023 [id number] / / [id number] Fixed Locking Screw 4.75mm X 30mm Implanted:Qty: 1 on 06/20/2013 by Capri Lamb MD at [facility] Left: Shoulder 02/04/2023 [id number] / / [id number] Scrw Fix Adriana 4.75mm X 20mm Implanted:Qty: 1 on 06/20/2013 by Capri Lamb MD at [facility] Left: Shoulder [employer] 03/07/2023 [id number] / / [id number] Shoulder Stem 12mm X 55mm Implanted:Qty: 1 on 06/20/2013 by Capri Lamb MD at [facility] Left: Shoulder 03/07/2023 [id number] / / [id number] Humeral Tray 44mm Standard Implanted:Qty: 1 on 06/20/2013 by Capri Lamb MD at [facility] Left: Shoulder 06/07/2023 [id number] / / [id number] Small Cement Restrictor Implanted:Qty: 1 on 02/16/2017 by Capri Lamb MD at [facility] Right: Shoulder [employer] 09/06/2021 [id number] / / [id number] Cable Orth Cocr 2mm 75mm Troch Clp Implanted:Qty: 1 on 02/16/2017 by Capri Lamb MD at [facility] Right: Shoulder [employer] 12/27/2025 [id number] / / [id number] Alonso Bone Viola-G Hv 40/20 Implanted:Qty: 1 on 02/16/2017 by Capri Lamb MD at [facility] Right: Shoulder [employer] 03/07/2017 [id number] / / [id number] Screw 4.75mm 15mm 3.5mm Shldr Fx Ang Lck Implanted:Qty: 1 on 02/16/2017 by Capri Lamb MD at [facility] Right: Shoulder [employer] 01/30/2027 [id number] / / [id number] Screw 4.75mm 15mm 3.5mm Shldr Fx Ang Lck Implanted:Qty: 1 on 02/16/2017 by Capri Lamb MD at [facility] Right: Shoulder [employer] 12/06/2026 [id number] / / [id number] Tray Hum 44mm Cmprh Std Shldr Cocr Rvrs Implanted:Qty: 1 on 02/16/2017 by Capri Lamb MD at [facility] Right: Shoulder [employer] 02/08/2027 [id number] / / [id number] Scrw Comp Rev Ctrl 6.5mm X 25mm Implanted:Qty: 1 on 02/16/2017 by Capri Lamb MD at [facility] Right: Shoulder [employer] 01/22/2027 [id number] / / [id number] Mini Humeral Stem 10mm X 83mm Implanted:Qty: 1 on 02/16/2017 by Capri Lamb MD at [facility] Right: Shoulder [employer] 01/01/2027 [id number] / / [id number] Brng Hum 36-44mm Cmprh Std Shldr Arcomxl Implanted:Qty: 1 on 02/16/2017 by Capri Lamb MD at [facility] Right: Shoulder [employer] 02/08/2022 [id number] / / [id number] Screw 4.75mm 25mm 3.5mm Shldr Fx Ang Lck Implanted:Qty: 1 on 02/16/2017 by Capri Lamb MD at [facility] Right: Shoulder [employer] 01/12/2027 [id number] / / [id number] Screw 4.75mm 30mm 3.5mm Shldr Fx Ang Lck Implanted:Qty: 1 on 02/16/2017 by Capri Lamb MD at [facility] Right: Shoulder [employer] 04/20/2026 [id number] / / [id number] Bsplt Glnd Cmprh 25mm Mini Tpr Adpr Rvrs Implanted:Qty: 1 on 02/16/2017 by Capri Lamb MD at [facility] Right: Shoulder [employer] 01/30/2027 [id number] / / [id number] Cmpnt Glnd 36mm Std Glenosphere Clr Cd Implanted:Qty: 1 on 02/16/2017 by Capri Lamb MD at [facility] Right: Shoulder [employer] 02/08/2027 [id number] / / [id number] Explanted Type Area Clamp Carrier Operator Device Identifier Shelf Expiration Date Model / Serial / Lot Stem Hum W/Align Tpr 45deg 12mm X 140mm Explanted:Qty: 1 on 02/16/2017 at [facility] Right: Shoulder [employer] 12/24/2026 [id number] / / [id number] Advance Directives Documents on File Type Date Recorded Patient Cushion Maker Expl anation Adv Directive/Living Will/POA 06/24/2013 5:12 PM * Full Code (Latest Code Status on File) Date Activated Date Inactivated Comments 02/16/2017 12:55 PM 02/19/2017 3:01 PM * FULL RESUSCITATION Date Activated Date Inactivated Comments 06/20/2013 10:05 AM 06/23/2013 12:55 PM Care Teams Communications Officer Relationship Specialty Start Date End Date Emile Mercado MD [address] [place] [phone] PCP - General Family Medicine 06/05/13 [place] [address] [address] [place] [id number] Orthopedic Surgery 01/22/13 [place] [address] [address] [place] [address] Orthopedic Surgery 03/11/15 Emmy Nolasco PAIsatuC [address] [address] [place] [phone] Physician Chandelier Maker Orthopedic Surgery 12/15/20
--- OUTSIDE RECORDS SUMMARY | 2024-11-05 12:57 | XMS_ITS | Encounter Summary ---
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 Gender Identity Not on file Sexual Orientation Not on file documented as of this encounter Plan of Treatment Not on file documented as of this encounter Procedures Procedure Name Priority Date/Time Associated Diagnosis Comments SCAN - RADIOLOGY/IMAGING 02/08/2018 documented in this encounter Results * SCAN - RADIOLOGY/IMAGING (02/08/2018) Anatomical Region Laterality Modality Other us Provider Scanning Final Result documented in this encounter Visit Diagnoses Not on filedocumented in this encounter Care Teams Loan Reviewer Relationship Specialty Start Date End Date Emile Mercado MD PCP - General 01/05/17 documented as of this encounter
--- OUTSIDE RECORDS SUMMARY | 2024-11-05 12:57 | XMS_ITS | Referral Summary ---
Author Organization [facility] Address [address] [place] [id number] Care Team Providers Care Assistant Shift Supervisor Name Role Phone Emile Mercado MD Primary Care Provider + [phone] Allergies Active Allergy Reactions Criticality Noted Date [...] (02/12/2019): Added automatically from request for surgery [id number] S/P lumbar fusion 08/31/2018 Neurogenic claudication 08/06/2018 Overview (08/06/2018): Added automatically from request for surgery [id number] Closed fracture of sacrum ([facility]) 04/27/2018 Lumbago 01/27/2016 Sciatica 12/30/2015 Postlaminectomy syndrome [...] SARS-CoV-2 Monovalent Vaccination (12+ Yrs) PURPLE 12/27/2020,12/02/2020 Social History Tobacco Use Types Packs/Day Years [...] on file Legal Sex Female 7:33 PM PUMP MECH[employer] Gender Identity Not on file Sexual Orientation [...] cm (4' 10 ) 11/08/2023 10:10 AM PUMP MECHANIC Body Mass Index 26.96 11/08/2023 10:10 AM PUMP MECHANIC Plan of Treatment Not on file Medical Devices Implanted Type Area Sanitation Worker Hosing Machinery Device Identifier Shelf Expiration Date Model / Serial / Lot [employer] [id number] Vertaplex Hv Autoplex Without Needle Delivery System Kit Bone - [id number] - [id number] Implanted:Qty : 1 on 02/25/2019 by Ketan Hermosillo MD at [facility] Bone Cement N/A: Spine Lumbar [employer] [id number] 03/07/2021 [id number] / [id number] / [id number] Si-Bone 7045-90 Ifuse Implant System 7mm 45mm Sacroiliac [place] System Spinal - [id number] Implanted:Qty : 1 on 04/26/2018 by Ketan Hermosillo MD at [facility] Right: Spine Lumbar Si-Bone 01/21/2023 7045-90 / / [id number] Si-Bone 7040-90 Ifuse Implant System 7mm 40mm Sacroiliac System Spinal Fixation - [id number] Implanted:Qty : 1 on 04/26/2018 by Ketan Hermosillo MD at [facility] Right: Spine Lumbar Si-Bone 01/11/2023 7040-90 / / [id number] Si-Bone 7040-90 Ifuse Implant System 7mm 40mm Sacroiliac System Spinal Fixation - [id number] Implanted:Qty : 1 on 04/26/2018 by Ketan Hermosillo MD at [facility] Right: Spine Lumbar Si-Bone 12/10/2022 7040-90 / / [id number] [employer] [id number] Vertaplex High Viscosity; Twin Pack Cement 20 Gm Bone 30% Barium - [id number] Implanted:Qty : 1 on 04/26/2018 by Ketan Hermosillo MD at [facility] Right: Spine Lumbar [employer] 06/07/2020 [id number] / / [id number] Spinal Elements [id number] Mercury Classic Thread Cap Locking Nonsterile - [id number] Implanted:Qty : 6 on 08/30/2018 by Ketan Hermosillo MD at [facility] Spine Lumbar Spinal Elements [id number] / / Spinal Elements [id number] Mercury Od5.5 Mm L55 Mm Straight Zachary Spinal Nonsterile - [id number] Implanted:Qty : 2 on 08/30/2018 by Ketan Hermosillo MD at [facility] Spine Lumbar Spinal Elements [id number] / / Cage Tibond [id number] m 5d - [id number] Implanted:Qty : 2 on 08/30/2018 by Ketan Hermosillo MD at [facility] Spine Lumbar Spinal Elements [id number] / / Medtronic Sofamor [place] [id number] Infuse 14mm 23mm Absorbable Sponge Sterile Water Syringe Needle - [id number] Implanted:Qty : 1 on 08/30/2018 by Ketan Hermosillo MD at [facility] Spine Lumbar Medtronic Sofamor [place] 01/05/2019 [id number] / / [id number] Spinal Elements [id number] Mercury Classic 6.5mm 45mm Polyaxial Cannulated Spine Screw Bone - [id number] Implanted:Qty : 2 on 08/30/2018 by Ketan Hermosillo MD at [facility] Spine Lumbar Spinal Elements [id number] / / Spinal Elements [id number] Mercury Classic 6.5mm 50mm Polyaxial Cannulated Spine Screw Bone - [id number] Implanted:Qty : 2 on 08/30/2018 by Ketna Hermosillo MD at [facility] Spine Lumbar Spinal Elements [id number] / / Spinal Elements 30289-559 Mercury Classic Polyaxial Cannulated Spine Screw Bone - [id number] Implanted:Qty : 1 on 08/30/2018 by Ketan Hermosillo MD at [facility] Spine Lumbar Spinal Elements [id number] / / Spinal Elements [id number] Mercury Classic Od7.5 Mm L45 Mm Polyaxial Cannulated Spine Screw Bone Nonsterile - [id number] Implanted:Qty : 1 on 08/30/2018 by Ketan Hermosillo MD at [facility] Spine Lumbar Spinal Elements [id number] / / Procedures Procedure Name Priority Date/Time Associated Diagnosis Comments DEXA TBS AXIAL SKELETON BONE DENSITY 1 OR MORE SITES Schedule Routine, Read Routine (OP Routine) 11/08/2023 10:10 AM PUMP MECHANIC Age-related osteoporosis without current pathological fracture from Last 3 Months or Most Recently Relevant to Health Maintenance Results * Dexa TBS Axial Skeleton Bone Density 1 or more sites (11/08/2023 10:10 AM PUMP MECHANIC) Anatomical Region Laterality Modality Wrist, Body N/A Radiographic Rosie ging Narrative 11/08/2023 2:24 PM PUMP MECHANIC Patient Name: Mahin Marshall Date of : 1940 Date of scan: 11/08/2023 Bone mineral density was performed on a [employer] Discovery Densitometer. ?? Based on machine cross-calibration [...] density scan were prepared by Suze Mascorro(Mendy) HUANT ??who is accredited by the International Society of Clinical Densitometry. The overall patient assessment and scan interpretation were performed by Geena Carroll M.D. ??who is certified by the International Society of Clinical Densitometry. [id number] us Geena Carroll MD IMG DXA PROCEDURES Final Re sult from Last 3 Months or Most Recently Relevant to Health Maintenance Insurance MEDICARE [facility] MEDICARE [facility] MEDICARE [facility] [place] Advance Directives For more information, please contact: [phone] * Full Code (Latest Code Status on File) Date Activated Date Inactivated Comments 08/30/2018 11:10 PM 09/03/2018 6:35 PM * Full Code Date Activated Date Inactivated Comments 04/26/2018 10:07 PM 04/27/2018 4:57 PM Care Teams Assistant Shift Supervisor Relationship Specialty Start Date End Date Emile Mercado MD PCP - General 01/05/17
--- OUTSIDE RECORDS SUMMARY | 2024-11-05 12:57 | XMS_ITS | Patient Health Summary ---
Author Organization [facility] Address [address] [place] [address] Care Team Providers Care Cook Helper Preserves Name Role Phone Capri Lamb MD Unavailable Emile Mercado MD Primary Care Provider [phone] Braydon Valadez MD Unavailable [phone] Emmy Nolasco PA-C Unavailable Note from [facility],non-owned Affiliates and Associated Physician Practices is amultiple site organization consisting of ambulatory clinics and hospital sitesin [place], [place], [place] and [place]. This disclosure is being madepursuant to the Care Everywhere program and may not contain all information available regarding this patient. Last updated 18.[facility] Allergies * Tetracycline Hcl(Itching) * Adhesive Sensitivity(Rash,Other) -Low Criticality * Codeine(Nausea and/or Vomiting,Headache) * Eggs(Diarrhea) * Erythromycin(Itching) * Levofloxacin(Loss control of body functions) * Penicillins(Urticaria) * Sulfa Drugs(Urticaria) * Trazodone(Dizziness) Medications * Be aware that medications may not be up to date on this document. Alwaysverify current medications with the patient. * atorvastatin (LIPITOR) 20 MG tablet Take 1 (one) tablet by mouth at bedtime * Polyethyl Glycol-Propyl Glycol (SYSTANE OP) * Iizapvortbh-Wpujasijw-Whfsah (TRELEGY ELLIPTA) 100-62.5-25 MCG/INH Inhale 1 (one) puff by mouth once daily * olopatadine (PATADAY) 0.2 % ophthalmic solution Instill 1 (one) drop into both eyes once daily * ciprofloxacin (CIPRO) 500 MG tablet Take 1 (one) tablet by mouth 1 Hour prior to Dental Appointment * diclofenac sodium (VOLTAREN) 1 % gel(Started 12/15/2020) Apply 2 (two) g to affected area 4 times daily 3 refills by 12/15/2021 * albuterol HFA (Proventil; Ventolin; Proair) 108 (90 Base) MCG/ACT inhaler Inhale 2 (two) puffs by mouth every 6 hours as needed * vitamin D3 (Cholecalciferol) 25 MCG (1000 UNITS) tablet Take 1 (one) tablet by mouth once daily * naproxen sodium (Aleve) 220 MG tablet Take 1 (one) tablet by mouth 2 times daily * SUMAtriptan (Imitrex) 6 MG/0.5ML injection(Started 06/19/2022) Inject 6 (six) mg subcutaneously as needed for Migraine 2 refills by 06/19/2023 * sertraline (Zoloft) 25 MG tablet(Started 12/11/2022) Take 1 (one) tablet by mouth once daily Active Problems Problem Noted Date Diagnosed Date Asthma 04/04/2022 Neuropathy 04/04/2022 Closed displaced fracture of fifth metatarsal bone of left foot 02/18/2019 Closed compression fracture of L1 lumbar vertebr a, sequela 02/12/2019 S/P lumbar fusion 08/31/2018 Closed fracture of sacrum 04/27/2018 Lumbago 01/27/2016 Postlaminectomy syndrome of lumbar region 2015 Inflammation of sacroiliac joint 12/30/2015 Sciatica 12/30/2015 Cephalalgia 12/28/2015 Chronic pain 12/28/2015 Osteoporosis 12/28/2015 Fatigue 12/28/2015 History of knee surgery 11/23/2015 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 Spinal stenosis of lumbar region 11/23/2015 Osteoarthrosis involving lower leg 03/11/2015 Knee joint replacement by other means 03/11/2015 [...] Mass Index 28.88 12/18/2022 10:28 AM CDT Medical Devices Implanted Type Area Parachute Mender Device Identifier Shelf Expiration Date Model / Serial / Lot Fixed Locking Screw 4.75mm X 15mm Implanted:Qty: 1 on 06/20/2013 by Capri Lamb MD at [facility] Left: Shoulder 03/07/2023 [id number] / / [id number] Linr Arcom Xlg 44-36 Std Implanted:Qty: 1 on 06/20/2013 by Capri Lamb MD at [facility] Left: Shoulder [employer] 05/07/2018 [id number] / / [id number] Floseal 10ml Implanted:Qty: 1 on 06/20/2013 by Capri Lamb MD at [facility] Left: Shoulder [employer] 09/06/2014 [id number] / / [id number] Fixed Locling Screw 4.75mm X 15mm Implanted:Qty: 1 on 06/20/2013 by Capri Lamb MD at [facility] Left: Shoulder 04/06/2023 [id number] / / [id number] Glenosphere Mini Baseplate 25mm Implanted:Qty: 1 on 06/20/2013 by Capri Lamb MD at [facility] Left: Shoulder 04/06/2023 [id number] / / [id number] Comp Rev Shld Stef Basplt 36mm Implanted:Qty: 1 on 06/20/2013 by Capri Lamb MD at [facility] Left: Shoulder [employer] 04/06/2023 [id number] / / [id number] Central Screw 6.5mm X 30mm Implanted:Qty: 1 on 06/20/2013 by Capri Lamb MD at [facility] Left: Shoulder 05/07/2023 [id number] / / [id number] Fixed Locking Screw 4.75mm X 30mm Implanted:Qty: 1 on 06/20/2013 by Capri Lamb MD at [facility] Left: Shoulder 02/04/2023 [id number] / / [id number] Scrw Fix Adriana 4.75mm X 20mm Implanted:Qty: 1 on 06/20/2013 by Capri Lamb MD at [facility] Left: Shoulder [employer] 03/07/2023 [id number] / / [id number] Shoulder Stem 12mm X 55mm Implanted:Qty: 1 on 06/20/2013 by Capri Lamb MD at [facility] Left: Shoulder 03/07/2023 [id number] / / [id number] Humeral Tray 44mm Standard Implanted:Qty: 1 on 06/20/2013 by Capri Lamb MD at [facility] Left: Shoulder 06/07/2023 [id number] / / [id number] Small Cement Restrictor Implanted:Qty: 1 on 02/16/2017 by Capri Lamb MD at [facility] Right: Shoulder [employer] 09/06/2021 [id number] / / [id number] Cable Orth Cocr 2mm 75mm Troch Clp Implanted:Qty: 1 on 02/16/2017 by Capri Lamb MD at [facility] Right: Shoulder [employer] 12/27/2025 [id number] / / [id number] Alonso Bone Spur-G Hv 40/20 Implanted:Qty: 1 on 02/16/2017 by Capri Lamb MD at [facility] Right: Shoulder [employer] 03/07/2017 [id number] / / [id number] Screw 4.75mm 15mm 3.5mm Shldr Fx Ang Lck Implanted:Qty: 1 on 02/16/2017 by Capri Lamb MD at [facility] Right: Shoulder [employer] 01/30/2027 [id number] / / [id number] Screw 4.75mm 15mm 3.5mm Shldr Fx Ang Lck Implanted:Qty: 1 on 02/16/2017 by Capri Lamb MD at [facility] Right: Shoulder [employer] 12/06/2026 [id number] / / [id number] Tray Hum 44mm Cmprh Std Shldr Cocr Rvrs Implanted:Qty: 1 on 02/16/2017 by Capri Lamb MD at [facility] Right: Shoulder [employer] 02/08/2027 [id number] / / [id number] Scrw Comp Rev Ctrl 6.5mm X 25mm Implanted:Qty: 1 on 02/16/2017 by Capri Lamb MD at [facility] Right: Shoulder [employer] 01/22/2027 [id number] / / [id number] Mini Humeral Stem 10mm X 83mm Implanted:Qty: 1 on 02/16/2017 by Capri Lamb MD at [facility] Right: Shoulder [employer] 01/01/2027 [id number] / / [id number] Brng Hum 36-44mm Cmprh Std Shldr Arcomxl Implanted:Qty: 1 on 02/16/2017 by Capri Lamb MD at [facility] Right: Shoulder [employer] 02/08/2022 [id number] / / [id number] Screw 4.75mm 25mm 3.5mm Shldr Fx Ang Lck Implanted:Qty: 1 on 02/16/2017 by Capri Lamb MD at [facility] Right: Shoulder [employer] 01/12/2027 [id number] / / [id number] Screw 4.75mm 30mm 3.5mm Shldr Fx Ang Lck Implanted:Qty: 1 on 02/16/2017 by Capri Lamb MD at [facility] Right: Shoulder [employer] 04/20/2026 [id number] / / [id number] Bsplt Glnd Cmprh 25mm Mini Tpr Adpr Rvrs Implanted:Qty: 1 on 02/16/2017 by Capri Lamb MD at [facility] Right: Shoulder [employer] 01/30/2027 [id number] / / [id number] Cmpnt Glnd 36mm Std Glenosphere Clr Cd Implanted:Qty: 1 on 02/16/2017 by Capri Lamb MD at [facility] Right: Shoulder [employer] 02/08/2027 [id number] / / [id number] Explanted Type Area Parachute Mender Device Identifier Shelf Expiration Date Model / Serial / Lot Stem Hum W/Align Tpr 45deg 12mm X 140mm Explanted:Qty: 1 on 02/16/2017 at [facility] Right: Shoulder [employer] 12/24/2026 [id number] / / [id number] Procedures * XR SHOULDER BILAT 2VW OR MORE(Performed 04/04/2022) Performed for Chronic pain of both shoulders * XR HAND LEFT 3VW OR MORE(Performed 03/13/2022) Performed for Bilateral hand pain * Alleman Block(Performed 03/25/2021) * ID RELIEVE PRESSURE ON NERVE(S)(Performed 03/25/2021) Performed for Neuropathy, median nerve, right * XR SHOULDER LEFT 2VW OR MORE(Performed 02/22/2021) Performed for Status post replacement of left shoulder joint * XR SHOULDER RIGHT 2VW OR MORE(Performed 12/15/2020) Performed for Acute pain of right shoulder * Alleman Block(Performed 05/26/2020) * NEUROLYSIS WITH MICROSCOPE(Performed 05/26/2020) Performed for Lesion of median nerve, right * XR HAND RIGHT 3VW OR MORE(Performed 12/18/2019) Performed for Hand pain, right * PATHOLOGY TISSUE EXAM (STL)(Performed 12/11/2019) Performed for Extensor tenosynovitis of wrist, left * Alleman Block(Performed 12/11/2019) * EXCISION LESION TENDON SHEATH ARM/WRIST(Performed 12/11/2019) Performed for Extensor tenosynovitis of wrist, left * XR SHOULDER LEFT 2VW OR MORE(Performed 02/26/2018) Performed for S/P reverse total shoulder arthroplasty, left, Chronic left shoulder pain * XR SHOULDER RIGHT 2VW OR MORE(Performed 02/26/2018) Performed for Chronic right shoulder pain * XR SHOULDER RIGHT 2VW OR MORE(Performed 11/29/2017) Performed for Chronic right shoulder pain * XR SHOULDER RIGHT 2VW OR MORE(Performed 08/14/2017) Performed for Chronic right shoulder pain * XR SHOULDER RIGHT 2VW OR MORE(Performed 07/03/2017) Performed for Chronic right shoulder pain * XR SHOULDER RIGHT 2VW OR MORE(Performed 05/22/2017) Performed for Chronic right shoulder pain * US EXTREMITY LEFT LTD NONVASC(Performed 04/11/2017) Performed for Neoplasm of unspecified nature of bone, soft tissue, and skin * XR SHOULDER RIGHT 2VW OR MORE(Performed 04/02/2017) Performed for Chronic right shoulder pain * XR WRIST LEFT 3VW OR MORE(Performed 03/27/2017) Performed for Skin neoplasm * XR SHOULDER RIGHT 2VW OR MORE(Performed 03/12/2017) Performed for Chronic right shoulder pain, Status post reverse total shoulder replacement, right * IMAGING/RADIOLOGY/XRAY RESULTS ORDER(Performed 02/21/2017) * XR SHOULDER RIGHT 1VW(Performed 02/16/2017) Performed for S/p reverse total shoulder arthroplasty, right * CULTURE WOUND+GRAM STAIN(Performed 02/16/2017) Performed for Diagnosis unknown * CULTURE ANAEROBE(Performed 02/16/2017) Performed for Diagnosis unknown * ARTHROPLASTY TOTAL SHOULDER (REVERSE)(Performed 02/16/2017) * PERIPHERAL BLOCK(Performed 02/16/2017) * CBC W AUTO DIFFERENTIAL(Performed 02/06/2017) Performed for Preop examination * COMPREHENSIVE METABOLIC PANEL(Performed 02/06/2017) Performed for Preop examination * CULTURE MSSA/MRSA(Performed 02/06/2017) Performed for Preop examination * EKG 12-LEAD(Performed 02/06/2017) Performed for Preop examination * XR SHOULDER LEFT 2VW OR MORE(Performed 01/15/2017) Performed for Chronic left shoulder pain, S/p reverse total shoulder arthroplasty, left * XR SHOULDER RIGHT 2VW OR MORE(Performed 01/15/2017) Performed for Chronic right shoulder pain * DERMATOPATHOLOGY(Performed 09/07/2016) * XR WRIST LEFT 3VW OR MORE(Performed 09/08/2015) Performed for Acute pain of left wrist * XR SHOULDER LEFT 2VW OR MORE(Performed 06/22/2015) Performed for Pain in joint, shoulder region, left * IMAGING/RADIOLOGY/XRAY RESULTS ORDER(Performed 10/29/2014) * XR SHOULDER LEFT 2VW OR MORE(Performed 06/23/2014) Performed for Pain in joint, shoulder region, left * XR SHOULDER LEFT 2VW OR MORE(Performed 12/22/2013) Performed for Shoulder joint pain, left * Interscalene Block(Performed 12/18/2013) * HLA TYPING DNA HIGH RESOLUTION DR(Performed 12/05/2013) * HLA TYPING DNA HIGH RESOLUTION DQ(Performed 12/05/2013) * HLA TYPING DNA HIGH RESOLUTION C(Performed 12/05/2013) * HLA TYPING DNA HIGH RESOLUTION A(Performed 12/05/2013) * HLA TYPING DNA HIGH RESOLUTION B(Performed 12/05/2013) * HLA TYPING DNA LOW RESOLUTION A,B,C(Performed 12/02/2013) * TYPE + SCREEN PANEL(Performed 12/02/2013) * HLA TYPING CLASS II (DR,DQ) DNA(Performed 12/02/2013) * CYTOMEGALOVIRUS ANTIBODY IGG BLOOD(Performed 12/02/2013) * XR SHOULDER LEFT 2VW OR MORE(Performed 09/16/2013) Performed for Pain in joint, shoulder region * IMAGING/RADIOLOGY/XRAY RESULTS ORDER(Performed 06/24/2013) * URINALYSIS REFLEX MICROSCOPIC REFLEX CULTURE(Performed 06/22/2013) * XR CHEST 2VW(Performed 06/22/2013) Performed for Fever * URINALYSIS REFLEX TO MICROSCOPIC NO CULTURE(Performed 06/22/2013) * CBC W/O DIFFERENTIAL(Performed 06/22/2013) * BASIC METABOLIC PANEL (CALCIUM TOTAL)(Performed 06/22/2013) * HGB HCT PANEL(Performed 06/21/2013) * XR SHOULDER LEFT 1VW(Performed 06/20/2013) Performed for S/P shoulder replacement * ARTHROPLASTY TOTAL SHOULDER (REVERSE)(Performed 06/20/2013) Performed for Primary localized osteoarthrosis, shoulder region * CULTURE MSSA/MRSA(Performed 05/26/2013) Performed for Preoperative examination * COMPREHENSIVE METABOLIC PANEL(Performed 05/26/2013) Performed for Preoperative examination * CBC W AUTO DIFFERENTIAL(Performed 05/26/2013) Performed for Preoperative examination * EKG 12-LEAD(Performed 05/26/2013) Performed for Preoperative examination * CT UPPER EXT LEFT WO CONTRAST(Performed 02/03/2013) Performed for Pain in joint, shoulder region, Complete rotator cuff tear or rupture of left shoulder, not specified as traumatic * FL GUIDED NEEDLE PLACEMENT(Performed 02/03/2013) Performed for Pain in joint, shoulder region, Complete rotator cuff tear or rupture of left shoulder, not specified as traumatic * XR SHOULDER LEFT 2VW OR MORE(Performed 01/22/2013) Performed for Pain in joint, shoulder region * GROSS + MICRO EXAM(Performed 08/15/2001) Results * XR SHOULDER BILAT 2VW (04/04/2022 1:59 PM CDT) Anatomical Region Laterality Modality Upper Extremity Computed Radiogr aphy Narrative 04/04/2022 1:57 PM CDT Geena Graham RT(R) ? 04/04/2022 ??3:18 PM 2 views AP and axillary lateral radiographs of the left shoulder performed on 04/04/22 reveals a reverse shoulder arthroplasty with components in good alignment and well positioned. Grade 1 notching, pedestal visible on the AP view but no obvious loosening. ?? radiographs of the right shoulder performed on 04/04/22 reveal that she has a widely displaced acromial stress fracture nonunion. ??Long humeral stem, cerclage wires present. ??Unchanged. Right reverse shoulder arthroplasty is otherwise in good position and well aligned Violette Burr PA-C DIAGNOSTIC IMAGING O RDERABLES * XR HAND LEFT 3VW OR MORE (03/13/2022 9:35 AM CDT) Anatomical Region Laterality Modality Wrist / Hand Radiographic Rosie ging 03/13/2022 9:44 AM CDT Impressions 03/13/2022 9:45 AM CDT Polyarthropathy. *Reading Radiologist: Karthik Prescott on 03/13/2022 at 9:45 AM Narrative 03/13/2022 9:45 AM CDT Left Hand 3 Views INDICATION: Left hand pain 81-year-old female FINDINGS: ??Polyarthropathy. Demineralization. Multiple areas of joint space narrowing. Spurring off the first IP joint. Degenerative changes scaphoid trapezium joint. Mild subluxation of the first CMC joint. There is no fracture. Normal sagittal alignment of the lunate relative to the radius. Procedure Note Karthik Prescott MD - 03/13/2022 Left Hand 3 Views INDICATION: Left hand pain 81-year-old female FINDINGS: Polyarthropathy. Demineralization. Multiple areas of joint space narrowing. Spurring off the first IP joint. Degenerative changes scaphoid trapezium joint. Mild subluxation of the first CMC joint. There is no fracture. Normal sagittal alignment of the lunate relative to the radius. IMPRESSION Polyarthropathy. *Reading Radiologist: Karthik Prescott on 03/13/2022 at 9:45 AM Michael Chinchilla MD DIAGNOSTIC IMAGING O RDERABLES * ANESTHESIA BLOCK PERF (03/25/2021 1:37 PM CDT) Narrative Martin Berry APRN-HYDRO GENERATION MANAGER - 03/25/2021 1:37 PM CDT Martin Berry APRN-CRNA ? 03/25/2021 ??1:38 PM Stewart Block: ? Patient Location: OR. Procedure: ??Alleman Block Pre Procedure Section: ?? Indications: ??surgical anesthesia Pre-Anesthetic Checklist: ??Patient identified, Site examined, Surgical consent verified, Pre-op evaluation done, Informed consent obtained, Allergies reviewed, IV Checked, Risks and benefits discussed, Monitors and equipment, Time-out performed and Questions answered/anesthesia questions answered Patient Position: ??supine Laterality: ??right Monitors: ??BP, continuous pluse ox, EKG and End tidal CO2 Block IV already in place: ??yes Procedure: ? Tourniquet: ??single Inflation Pressure: ??250 Arm Exsanguinated: ??yes Tourniquet Inflated: ??yes Pulses Checked: ??yes Procedure Tolerance: ??tolerated well Procedure Start Time: 03/25/2021 1:26 PM. Procedure End Time: 03/25/2021 1:30 PM. Procedure Total Time: 4 ??minutes. Staff Section ? Anesthesia Provider: Martin Berry APRN-JARRET, Performed the procedure Nena Childs DO GENERAL ANESTHESIA O RDERABLES * XR SHOULDER LEFT 2VW OR MORE (02/22/2021 11:49 AM CDT) Only the most recent of8 resultswithin the time period is included. Anatomical Region Laterality Modality Upper Extremity Computed Radiogr aphy Narrative 02/22/2021 11:50 AM CDT Geena Graham, RT(R) ? 02/22/2021 ??4:01 PM 2 views AP and axillary lateral radiographs of the left shoulder performed on 02/22/2021 reveals a reverse shoulder arthroplasty with components in good alignment and well positioned. Grade 1 notching, pedestal visible on the AP view but no obvious loosening. There is no radiographic evidence for loosening, osteolysis or malposition. ?? Prior radiographs of the right shoulder from 12/15/2020 reveal that she has a widely displaced acromial stress fracture nonunion. ??Long humeral stem, cerclage wires present. ??Unchanged. Right reverse shoulder arthroplasty is otherwise in good position and well aligned. ?? IMPRESSION: 1.??Doing well s/post??right??shoulder reverse shoulder arthroplasty, cemented with long stem and cerclage wire performed on?02/06/2017.?? 2. Doing well s/p left reverse shoulder arthroplasty, 06/20/13. ?? Violette Burr PA-C DIAGNOSTIC IMAGING O RDERABLES * XR SHOULDER RIGHT 2VW OR MORE (12/15/2020 1:31 PM HYDRAULIC AND PLUMBING INSTALLER) Only the most recent of9 resultswithin the time period is included. Anatomical Region Laterality Modality Upper Extremity Computed Radiogr aphy Narrative 12/15/2020 1:31 PM HYDRAULIC AND PLUMBING INSTALLER Ashley Miller ? 12/15/2020 ??3:34 PM Please see progress notes for xray results Emmy Nolasco PA-C DIAGNOSTIC IMAGING ORDERABLES * ANESTHESIA BLOCK PERF (05/26/2020 1:21 PM CDT) Narrative Ruchi Gupta APRN-CRNA - 05/26/2020 1:21 PM CDT Ruchi Gupta APRN-CRNA ? 05/26/2020 ??1:22 PM Stewart Block: ? Patient Location: OR. Procedure: ??Stewart Block Pre Procedure Section: ?? Indications: ??surgical anesthesia Pre-Anesthetic Checklist: ??Patient identified, Site examined, Surgical consent verified, Pre-op evaluation done, Informed consent obtained, Allergies reviewed, IV Checked, Risks and benefits discussed, Monitors and equipment, Time-out performed and Questions answered/anesthesia questions answered Patient Position: ??supine Laterality: ??left Monitors: ??BP, continuous pluse ox, End tidal CO2 and EKG Patient Sedated? ??Yes ? Sedation Types: moderate. Block IV already in place: ??yes Procedure: ? Tourniquet: ??single Inflation Pressure: ??250 Arm Exsanguinated: ??yes Tourniquet Inflated: ??yes Pulses Checked: ??yes Drug Injected: ??yes Procedure Tolerance: ??tolerated well ?? no immediate complications ?? performed while the patient was sedated Staff Section ? Anesthesia Provider: Ruchi Gupta APRN-CRNA, Performed the procedure Nena Childs DO GENERAL ANESTHESIA O RDERABLES * XR HAND RIGHT 3VW OR MORE (12/18/2019 10:43 AM CDT) Anatomical Region Laterality Modality Wrist / Hand Radiographic Rosie ging 12/18/2019 3:18 PM CDT Narrative 12/18/2019 3:19 PM CDT Right Hand 3 Views INDICATION: Second finger injury several months prior, pain FINDINGS: ??Generalized osteopenia. No fracture or malalignment or bony lesion. Joint spaces are preserved. *Reading Radiologist: Karthik Chavez MD on 12/18/2019 at 3:19 PM Procedure Note Karthik Chavez MD - 12/18/2019 Right Hand 3 Views INDICATION: Second finger injury several months prior, pain FINDINGS: Generalized osteopenia. No fracture or malalignment or bony lesion. Joint spaces are preserved. *Reading Radiologist: Karthik Chavez MD on 12/18/2019 at 3:19 PM Authorizing Provider Result Ghislaine Chinchilla MD DIAGNOSTIC IMAGING O RDERABLES * GROSS + MICRO EXAM (STL) (12/11/2019 12:39 PM HYDRAULIC AND PLUMBING INSTALLER) Case Report Surgical Pathology Report ? Case: [id number] ? Authorizing Provider: ??Michael Chinchilla MD ? Collected: ? 12/11/2019 12:39 PM ? Ordering Location: ? [facility] ?Received: ?12/12/2019 07:18 AM ? CENTER ? Pathologist: ? Cheryle Cassidy MD ? Specimen: ?Mass, mass left wrist ? 12/15/2019 1:23 PM CDT [facility] Final Diagnosis Left wrist mass, excision: -- Ganglion cyst 12/15/2019 1:23 PM T [facility] Gross Description The specimen is received in a formalin-filled container labeled with the patient? s name, Mehnaz Marshall, and mass left wrist, and consists of two irregular, unoriented, barnes soft tissue fragments (1.2 x 0.2 x 0.1 cm in aggregate). The specimen is entirely submitted in cassette A1. AMA/na 12/15/2019 1:23 PM CDT [facility] Microscopic Description Sections of the left wrist mass show features consistent with ganglion cyst. 12/15/2019 1:23 PM T [facility] Disclaimer All histochemical and/or immunohistochemical results are interpreted with controls that demonstrate appropriate staining reactions before reporting results. Note on use of immunocytochemistry reagents: This test was developed and its performance characteristic determined by [facility], Department of Laboratory Medicine. It has not been cleared or approved by the U.S. Food and Drug Administration (FDA). The FDA has determined that such clearance or approval is not necessary. The test is used for clinical purpose. It should not be regarded as investigational or for research. This laboratory is certified to perform high complexity testing. The performance characteristics of the IHC/JACKY assays have been validated on formalin-fixed paraffin embedded tissues only. The assays have not been validated on decalcified tissues. Results should be interpreted with caution. 12/15/2019 1:23 PM CDT [facility] Embedded Images 12/15/2019 1:23 PM CDT [facility] Pathology/Cytology MASS / Unknown 020 12:39 PM HYDRAULIC AND PLUMBING INSTALLER 12/12/2019 7:18 AM HYDRAULIC AND PLUMBING INSTALLER Comment:Pre-op diagnosis: Extensor tenosynovitis of wrist, left [M65.832] Michael Chinchilla MD LAB - PATHOLOGY/CYTO LOGY ORDERABLES [facility] [address] [place] [address] * ANESTHESIA BLOCK PERF (12/11/2019 12:26 PM HYDRAULIC AND PLUMBING INSTALLER) Narrative Nick Frazier APRN-HYDRO GENERATION MANAGER - 12/11/2019 12:26 PM HYDRAULIC AND PLUMBING INSTALLER Nick Frazier APRN-CRNA ? 12/11/2019 12:27 PM Stewart Block: ? Patient Location: OR. Procedure: ??Stewart Block Pre Procedure Section: ?? Indications: ??surgical anesthesia Pre-Anesthetic Checklist: ??Patient identified, Site examined, Surgical consent verified, Pre-op evaluation done, Informed consent obtained, Allergies reviewed, IV Checked, Risks and benefits discussed, Monitors and equipment, Time-out performed and Questions answered/anesthesia questions answered Patient Position: ??supine Laterality: ??left Monitors: ??BP, continuous pluse ox, EKG and End tidal CO2 Patient Sedated? ??Yes ? Sedation Types: mild. Block IV already in place: ??yes Gauge: ??20 Procedure: ? Tourniquet: ??single Inflation Pressure: ??250 Arm Exsanguinated: ??yes Tourniquet Inflated: ??yes Pulses Checked: ??yes Drug Injected: ??yes Procedure Tolerance: ??tolerated well Staff Section ? Anesthesia Provider: Nick Frazier APRN-CRNA, Performed the procedure Nena Childs DO GENERAL ANESTHESIA O RDERABLES * US EXTREMITY LEFT LTD NONVASC (04/11/2017 1:30 PM CDT) Anatomical Region Laterality Modality Lower Extremity, Upper Extremity Ultrasound 04/11/2017 3:26 PM CDT Impressions 04/11/2017 4:02 PM CDT HETEROGENEOUS SMOOTHLY MARGINATED SOFT TISSUE MASS AT THE ULNAR ASPECT LEFT WRIST WITH EXTENSION TOWARDS THE CARPUS. THERE ARE ASSOCIATED SMALL GANGLION CYSTS ALONG THE SURFACE OF THIS LESION. 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 THE MASS HAS NONAGGRESSIVE SONOGRAPHIC FEATURES. Edited by Elissa Pinzon on 04/11/2017 3:44 PM Narrative 04/11/2017 4:02 PM CDT ULTRASOUND LEFT WRIST CLINICAL INDICATION: Painful palpable ulnar-sided left wrist mass. COMPARISON: Left wrist x-ray series 03/27/2017. TECHNIQUE: Longitudinal and transverse grayscale and Doppler imaging of the left wrist was performed with attention to the area of palpable mass on the ulnar side. FINDINGS: There is an avascular smoothly marginated heterogeneous echotexture mass at the ulnar aspect of the left wrist just distal to the ulnar styloid. The mass has a U-shaped configuration with ends ??extending towards the carpus. The lesion measures approximately 1.6 x 1.0 cm. There are at least two complex ganglion cysts intimately associated with the surface of the mass. The largest measures 7 x 3 mm. There are no fluid collections. The extensor carpi ulnaris tendon is normal in echotexture. There is no evidence of tenosynovitis. Procedure Note Demetrius Hernandez MD - 04/11/2017 ULTRASOUND LEFT WRIST CLINICAL INDICATION: Painful palpable ulnar-sided left wrist mass. COMPARISON: Left wrist x-ray series 03/27/2017. TECHNIQUE: Longitudinal and transverse grayscale and Doppler imaging of the left wrist was performed with attention to the area of palpable mass on the ulnar side. FINDINGS: There is an avascular smoothly marginated heterogeneous echotexture mass at the ulnar aspect of the left wrist just distal to the ulnar styloid. The mass has a U-shaped configuration with ends extending towards the carpus. The lesion measures approximately 1.6 x 1.0 cm. There are at least two complex ganglion cysts intimately associated with the surface of the mass. The largest measures 7 x 3 mm. There are no fluid collections. The extensor carpi ulnaris tendon is normal in echotexture. There is no evidence of tenosynovitis. IMPRESSION HETEROGENEOUS SMOOTHLY MARGINATED SOFT TISSUE MASS AT THE ULNAR ASPECT LEFT WRIST WITH EXTENSION TOWARDS THE CARPUS. THERE ARE ASSOCIATED SMALL GANGLION CYSTS ALONG THE SURFACE OF THIS LESION. 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 THE MASS HAS NONAGGRESSIVE SONOGRAPHIC FEATURES. Edited by Elissa Pinzon on 04/11/2017 3:44 PM Michael Chinchilla MD US ORDERABLES * XR WRIST 3+ VW LEFT (03/27/2017 11:23 AM CDT) Only the most recent of2 resultswithin the time period is included. Anatomical Region Laterality Modality Wrist / Hand Radiographic Rosie ging 03/27/2017 1:59 PM CDT Narrative 03/27/2017 2:22 PM CDT THREE VIEWS LEFT WRIST INDICATION: Left wrist mass. FINDINGS: There is a subcutaneous mass at the ulnar aspect of the left wrist occurring at the level of the carpus. No soft tissue calcifications are seen. There is no evidence of bone destruction or bone erosion. There is borderline widening of the scapholunate space which may indicate underlying pathology with the scapholunate interosseous ligament. There is slight dorsal tilting of the lunate. This may indicate dorsal intercalated segmental instability. There is bony demineralization. There are minor arthritic changes at the scaphotrapezial joint. There is no acute fracture. Edited by Starla Spencer on 03/27/2017 2:13 PM Procedure Note Demetrius Hernandez MD - 03/27/2017 THREE VIEWS LEFT WRIST INDICATION: Left wrist mass. FINDINGS: There is a subcutaneous mass at the ulnar aspect of the left wrist occurring at the level of the carpus. No soft tissue calcifications are seen. There is no evidence of bone destruction or bone erosion. There is borderline widening of the scapholunate space which may indicate underlying pathology with the scapholunate interosseous ligament. There is slight dorsal tilting of the lunate. This may indicate dorsal intercalated segmental instability. There is bony demineralization. There are minor arthritic changes at the scaphotrapezial joint. There is no acute fracture. Edited by Starla Spencer on 03/27/2017 2:13 PM Michael Chinchilla MD DIAGNOSTIC IMAGING O RDERABLES * IMAGING/RADIOLOGY/XRAY RESULTS ORDER (02/21/2017 6:42 PM CDT) Only the most recent of3 resultswithin the time period is included. Anatomical Region Laterality Modality Other Narrative 02/21/2017 6:42 PM CDT Ordered by an unspecified provider. 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 Edited by Starla Spencer on 02/16/2017 3:49 PM Narrative 02/16/2017 3:56 PM CDT RIGHT SHOULDER ONE VIEW Indication: Right shoulder pain. Findings: A single frontal view of the right shoulder compared to January 15, 2017 shows a right shoulder prosthesis in appropriate alignment. There is no acute fracture or subluxation. Procedure Note Martin Gandhi MD - 02/16/2017 RIGHT SHOULDER ONE VIEW Indication: Right shoulder pain. Findings: A single frontal view of the right shoulder compared to January 15, 2017 shows a right shoulder prosthesis in appropriate alignment. There is no acute fracture or subluxation. 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 Edited by Starla Spencer on 02/16/2017 3:49 PM Capri Lamb MD DIAGNOSTIC IMAGING ORDERABLES * CULTURE WOUND+GRAM STAIN (02/16/2017 10:03 AM CDT) Culture No growth PERFECTO 02/19/2017 2:04 PM CDT [facility] MICROBIOLOGY Gram Stain Light White blood cells 02/19/2017 2:04 PM CDT [facility] MICROBIOLOGY Gram Stain No organisms seen 02/19/2017 2:04 PM CDT [facility] MICROBIOLOGY Microbiology ENTIRE SHOULDER REGION / Unknown 02/16/2017 10:03 AM CDT 02/16/2017 10:12 AM CDT Narrative [facility] MICROBIOLOGY - 02/19/2017 2:04 PM CDT Surgical Description: S/P Right Shoulder Surgery Capri Lamb MD LAB - MICROBIOLOGY ORDERABLES Performing Organization Address [facility] de Phone Number [facility] MICROBIOLOGY [address] [place] [address], [facility] [phone] * CULTURE ANAEROBE (02/16/2017 10:03 AM CDT) Culture No anaerobic organisms isolated PERFECTO 03/02/2017 2:50 PM CDT [facility] MICROBIOLOGY Microbiology ENTIRE SHOULDER REGION / Unknown 02/16/2017 10:03 AM CDT 02/16/2017 10:12 AM CDT Narrative [facility] MICROBIOLOGY - 03/02/2017 2:50 PM CDT Surgical Description: S/P Right Shoulder Surgery Culture held for 14 days Capri Lamb MD LAB - MICROBIOLOGY ORDERABLES Performing Organization Address [facility] de Phone Number [facility] MICROBIOLOGY [address] [place] [address], [facility] [phone] * CULTURE MSSA/MRSA (02/06/2017 10:50 AM CDT) Only the most recent of2 resultswithin the time period is included. Culture Negative for Staphylococcus aureus (MRSA/MSSA) PERFECTO 02/08/2017 10:14 AM CDT [facility] MICROBIOLOGY Microbiology SPECIMEN FROM NASAL FOSSAE / Unknown 02/06/2017 10:50 AM CDT 02/06/2017 11:46 AM CDT Capri Lamb MD LAB - MICROBIOLOGY ORDERABLES Performing Organization Address [facility] de Phone Number [facility] MICROBIOLOGY [address] [place] [address], [facility] [phone] * (ABNORMAL) CBC W AUTO DIFFERENTIAL (02/06/2017 10:50 AM CDT) Only the most recent of2 resultswithin the time period is included. WBC 5.2 4.4 - 10.7 x10E9/L 02/06/2017 11:51 AM CDT [facility] WBC Corrected x10E9/L 02/06/2017 11:51 AM CDT [facility] RBC 3.84 3.80 - 5.20 x10E12/L 02/06/2017 11:51 AM CDT [facility] Hemoglobin 12.7 12.0 - 15.6 gm/dL 02/06/2017 11:51 AM CDT [facility] Hematocrit 38.1 35.9 - 45.5 % 02/06/2017 11:51 AM CDT [facility] MCV 99.2(H) 80.7 - 98.3 fl 02/06/2017 11:51 AM CDT [facility] MCH 33.1 26.7 - 34.0 pg 02/06/2017 11:51 AM CDT [facility] MCHC 33.3 30.8 - 35.9 gm/dL 02/06/2017 11:51 AM CDT [facility] Platelet Count 150(L) 153 - 416 x10E9/L 02/06/2017 11:51 AM CDT [facility] RDW-CV 12.3 12.1 - 14.9 % 02/06/2017 11:51 AM CDT [facility] MPV 9.5 9.4 - 12.9 fl 02/06/2017 11:51 AM CDT [facility] Neutrophils % 51.9 44.0 - 73.0 % 02/06/2017 11:51 AM CDT [facility] Lymphocytes % 36.2 20.0 - 43.0 % 02/06/2017 11:51 AM CDT [facility] Monocytes % 7.0 5.0 - 13.0 % 02/06/2017 11:51 AM CDT [facility] Eosinophils % 4.1 0.0 - 6.0 % 02/06/2017 11:51 AM CDT [facility] Basophils % 0.6 0.0 - 2.0 % 02/06/2017 11:51 AM CDT [facility] Immature Granulocytes 0.2 0 - 1 % 02/06/2017 11:51 AM CDT [facility] Neutrophil Absolute 2.69 2.01 - 7.14 x10E9/L 02/06/2017 11:51 AM CDT [facility] Lymphocytes Absolute 1.87 1.07 - 3.94 x10E9/L 02/06/2017 11:51 AM CDT [facility] Monocytes Absolute 0.36 0.26 - 1.07 x10E9/L 02/06/2017 11:51 AM CDT [facility] Eosinophils Absolute 0.21 0 - 0.47 x10E9/L 02/06/2017 11:51 AM CDT [facility] Basophils Absolute 0.03 0 - 0.08 x10E9/L 02/06/2017 11:51 AM CDT [facility] Immature Granulocytes Absolute 0.01 0.00 - 0.06 x10E9/L 02/06/2017 11:51 AM CDT [facility] nRBC Auto 0 /100 WBC 02/06/2017 11:51 AM CDT [facility] Blood BLOOD SPECIMEN / Unknown 02/06/2017 10:50 AM CDT 02/06/2017 11:47 AM CDT Capri Lamb MD LAB - HEMATOLOGY OR DERABLES [facility] [address] [place] [address] * (ABNORMAL) COMPREHENSIVE METABOLIC PANEL (02/06/2017 10:50 AM CDT) Only the most recent of2 resultswithin the time period is included. Pathologist [facility] Glucose 93 74 - 106 mg/dL 02/06/2017 12:14 PM CDT [facility] Sodium 136 136 - 145 mmol/L 02/06/2017 12:14 PM CDT [facility] Potassium 4.1 3.5 - 5.1 mmol/L 02/06/2017 12:14 PM CDT [facility] Chloride 103 98 - 107 mmol/L 02/06/2017 12:14 PM CDT [facility] CO2 26 22 - 31 mmol/L 02/06/2017 12:14 PM CDT [facility] Calcium 9.1 8.5 - 10.1 mg/dL 02/06/2017 12:14 PM CDT [facility] Anion Gap 7(L) 8 - 16 mmol/L 02/06/2017 12:14 PM CDT [facility] BUN 14 7 - 21 mg/dL 02/06/2017 12:14 PM CDT [facility] Creatinine 0.93 0.50 - 1.30 mg/dL 02/06/2017 12:14 PM CDT [facility] Alkaline Phosphatase 65 38 - 126 U/L 02/06/2017 12:14 PM CDT [facility] ALT 23 13 - 61 U/L 02/06/2017 12:14 PM CDT [facility] AST 17 5 - 40 U/L 02/06/2017 12:14 PM CDT [facility] Protein Total 6.3(L) 6.4 - 8.2 gm/dL 02/06/2017 12:14 PM CDT [facility] Albumin 3.6 3.4 - 5.0 gm/dL 02/06/2017 12:14 PM CDT [facility] Bilirubin Total 0.5 0.2 - 1.0 mg/dL 02/06/2017 12:14 PM CDT [facility] eGFR by MDRD 59 mL/min/1.7 3m2 02/06/2017 12:14 PM CDT [facility] eGFR by MDRD >60 mL/min/1.7 3m2 02/06/2017 12:14 PM CDT [facility] Blood BLOOD SPECIMEN / Unknown 02/06/2017 10:50 AM CDT 02/06/2017 11:47 AM CDT Capri Lamb MD LAB - CHEMISTRY ORD ERABLES [facility] [address] [place] [address] * EKG 12-LEAD (02/06/2017 10:20 AM CDT) Only the most recent of2 resultswithin the time period is included. Ventricular Rate 67 BPM [facility] Atrial Rate 67 BPM [facility] P-R Interval 144 ms [facility] QRS Duration ms 76 ms [facility] Q-T Interval ms 378 ms [facility] QTC Calculation (Bezet) 399 ms [facility] Calculated P [place] 64 degrees [facility] Calculated R [place] -12 degrees [facility] Calculated T [place] 63 degrees [facility] Interpretation EKG Normal sinus rhythm Possible Left atrial enlargement Borderline ECG When compared with ECG of 26-MAY-2013 10:58, No significant change was found Confirmed by SONAM COWART, MATTHEW ([id number]) on 02/07/2017 8:58:17 AM [facility] 02/06/2017 10:2 0 AM CDT 02/07/2017 8:58 AM CDT Capri Lamb MD ECG ORDERABLES Performing Organization Address [facility] Co de Phone Number [facility] * PATHOLOGY TISSUE FOR DERMATOLOGY (09/07/2016 12:00 AM HYDRAULIC AND PLUMBING INSTALLER) Result CASE: [id number] PATIENT: MEHNAZ MARSHALL PATHOLOGIC DIAGNOSIS: Left back: SEBORRHEIC KERATOSIS, IRRITATED AND INFLAMED NOT PRESENT AT SAMPLED MARGIN CLINICAL DATA: Changing lesion. Check margins. GROSS DESCRIPTION: Received is one formalin filled container labeled with the patients name and designated back. ??The specimen consists of a [id number] excision of skin. The epidermal surface consists of a centrally located [id number] papule. The margin is inked green. The specimen is bisected lengthwise and submitted in 1 cassette. Jar 0+. MICROSCOPIC DESCRIPTION: Sections show acanthosis, papillomatosis, hyperkeratosis, and squamous eddies. ??There is a lymphohistiocytic infiltrate within the papillary dermis. This lesion is not present at the sampled margin of the specimen. Electronically signed out by Lianna Whitfield M.D., PhD. 09/11/2016 12:54:16PM [facility] Comment: Performed at: Dermatopathology Laboratory [facility] - Department of Dermatology [address] [place] [address] [place] [address] Phone number: [phone] FAX: [phone] 09/07/2016 09/08/2016 Emile Mercado MD LAB - PATHOLOGY/CYTO LOGY ORDERABLES Performing Organization Address [facility] Co de Phone Number [facility] [address] [place] [address]. [facility] Floor Lab [address] [phone] * ANESTHESIA BLOCK PERF (12/18/2013 8:50 AM CDT) Narrative Tisha Leslie DO - 12/18/2013 8:50 AM CDT Tisha Leslie, DO ? 12/18/2013 ??8:50 AM Preanesthetic Checklist Completed: patient identified, IV checked, site marked, risks and benefits discussed, surgical consent, monitors and equipment checked, pre-op evaluation, timeout performed and questions answered / anesthesia plan accepted ?? Interscalene Procedures: ultrasound guided and nerve stimulator. ?? Laterality: Left Position for procedure: ??sitting Prep: ??sterile gloves, cap and skin prepped with Chloraprep. ?? Needle: ??22 G Nerve Stimulator Needle ?? Injection technique: single-shot Response to Block: ?? twitch 0.4 mA Patient Care after Block: Instructions to patient: ??activity restrictions and expected sensory deficits Additional Notes: PLACED FOR POST OP PAIN MGMT AT REQUEST OF SURGEON. ??SEE MAR FOR MEDS GIVEN Procedure Note Tisha Leslie, DO - 06/20/2013 6:40 AM CDT Preanesthetic Checklist Completed: patient identified, IV checked, site marked, risks and benefitsdiscussed, surgical consent, monitors and equipment checked, pre-opevaluation, timeout performed and questions answered / anesthesia planaccepted Interscalene Procedures: ultrasound guided and nerve stimulator. Laterality: Left Position for procedure: sitting Prep: sterile gloves, cap and skin prepped with Chloraprep. Needle: 22 G Nerve Stimulator Needle Injection technique: single-shot Response to Block: twitch 0.4 mA Patient Care after Block: Instructions to patient: activity restrictions and expected sensorydeficits Additional Notes: PLACED FOR POST OP PAIN MGMT AT REQUEST OF SURGEON. SEE [facility] FOR MEDSGIVEN Tisha Leslie DO GENERAL ANESTHESIA O RDERABLES * HLA TYPING DNA HIGH RESOLUTION DR (12/05/2013 2:50 PM HYDRAULIC AND PLUMBING INSTALLER) DR Locus DRB1-1 07:01 () [facility] DR DQ Low Resolution DRB1-2 15:01 () [facility] Reportable - () [facility] DR Locus Test Method SSP () [facility] DR Locus Tested Date 4 () [facility] Comment: This test was developed and its performance characteristics determined by the [facility]. ??It has not been cleared or approved by the U.S. Food and Drug Administration. ??The FDA has determined that such clearance or approval is not necessary. ??This test is used for clinical purposes. ??It should not be regarded as investigational or for research. This laboratory is certified under the Clinical Laboratory Improvement Amendments of 1988 (CLIA-88) as qualified to perform high complexity clinical laboratory testing. Performed at: ??[facility], [address] @ [place], [place] ??[phone] Stud Setter: Pardeep Wells MD, Blood specimen (specimen) 12/05/2013 2:50 PM HYDRAULIC AND PLUMBING INSTALLER 12/11/2013 4:21 PM HYDRAULIC AND PLUMBING INSTALLER Pierre Johnson MD LAB - BLOOD BANK O ALEX [place] [id number] [address] [phone] * HLA TYPING DNA HIGH RESOLUTION DQ (12/05/2013 2:50 PM HYDRAULIC AND PLUMBING INSTALLER) DQ Locus DQB1-1 02:02 () [facility] DR DQ Low Resolution DQB1-2 06:02 () [facility] Reportable Comments DQ Locus - () [facility] DQ Locus Test Method SSP () [facility] DQ Locus Tested Date 4 () [facility] Comment: This test was developed and its performance characteristics determined by the [facility]. ??It has not been cleared or approved by the U.S. Food and Drug Administration. ??The FDA has determined that such clearance or approval is not necessary. ??This test is used for clinical purposes. ??It should not be regarded as investigational or for research. This laboratory is certified under the Clinical Laboratory Improvement Amendments of 1988 (CLIA-88) as qualified to perform high complexity clinical laboratory testing. Performed at: ??[facility], [address] @ [place], [place] ??[phone] Stud Setter: Pardeep Wells MD, Blood specimen (specimen) 12/05/2013 2:50 PM HYDRAULIC AND PLUMBING INSTALLER 12/11/2013 4:21 PM HYDRAULIC AND PLUMBING INSTALLER Pierre Johnson MD LAB - BLOOD BANK O RDERABLES Performing Organization Address City/[facility]/ZIP Co de Phone Number [facility] [address] [place], [place] [id number] [place] [address] * HLA TYPING DNA HIGH RESOLUTION B (12/05/2013 2:50 PM HYDRAULIC AND PLUMBING INSTALLER) B Locus B*-1 07:02 () [facility] B Locus B*-2 44:03 () [facility] HLA B Locus Bw-2 6 () [facility] HLA B Locus Bw-2 4 () [facility] Comment HLA B Locus - () [facility] HLA B Locus Methodology SSP () [facility] HLA B Locus Test Date 4 () [facility] Comment: This test was developed and its performance characteristics determined by the [facility]. ??It has not been cleared or approved by the U.S. Food and Drug Administration. ??The FDA has determined that such clearance or approval is not necessary. ??This test is used for clinical purposes. ??It should not be regarded as investigational or for research. This laboratory is certified under the Clinical Laboratory Improvement Amendments of 1988 (CLIA-88) as qualified to perform high complexity clinical laboratory testing. Performed at: ??[facility], [address] @ [place], [place] ??[phone] Stud Setter: Pardeep Wells MD, 12/05/2013 2:50 PM HYDRAULIC AND PLUMBING INSTALLER 12/11/2013 4:21 PM HYDRAULIC AND PLUMBING INSTALLER Pierre Johnson MD LAB - BLOOD BANK O RDERAROMINA Performing Organization Address [facility]/State/ZIP Co de Phone Number [facility] [address] [place], [place] [id number] [place] [address] * HLA TYPING DNA HIGH RESOLUTION A (12/05/2013 2:50 PM HYDRAULIC AND PLUMBING INSTALLER) A Locus HR A1 02:01 () [facility] A Locus HR A2 24:02 () [facility] A Locus HR Comment - () [facility] A Locus HR Methodology SSP () [facility] A Locus HR Test Date 4 () [facility] Comment: This test was developed and its performance characteristics determined by the [facility]. ??It has not been cleared or approved by the U.S. Food and Drug Administration. ??The FDA has determined that such clearance or approval is not necessary. ??This test is used for clinical purposes. ??It should not be regarded as investigational or for research. This laboratory is certified under the Clinical Laboratory Improvement Amendments of 1988 (CLIA-88) as qualified to perform high complexity clinical laboratory testing. Performed at: ??[facility], [address] @ [place], [place] ??[phone] Stud Setter: Pardeep Wells MD, 12/05/2013 2:50 PM HYDRAULIC AND PLUMBING INSTALLER 12/11/2013 4:21 PM HYDRAULIC AND PLUMBING INSTALLER Pierre Johnson MD LAB - BLOOD BANK O RDERABLES Performing Organization Address City/State/[facility] Co de Phone Number [address] [phone] * HLA TYPING DNA HIGH RESOLUTION C (12/05/2013 2:50 PM HYDRAULIC AND PLUMBING INSTALLER) C Locus C1 04:01 () [facility] C Locus C2 07:02 () [facility] Comment - () [facility] Test Method SSP () [facility] C Locus Test Date 4 () [facility] Comment: This test was developed and its performance characteristics determined by the [facility]. ??It has not been cleared or approved by the U.S. Food and Drug Administration. ??The FDA has determined that such clearance or approval is not necessary. ??This test is used for clinical purposes. ??It should not be regarded as investigational or for research. This laboratory is certified under the Clinical Laboratory Improvement Amendments of 1988 (CLIA-88) as qualified to perform high complexity clinical laboratory testing. Performed at: ??[facility], [address] @ [place], [place] ??[phone] Stud Setter: Pardeep Wells MD, Blood specimen (specimen) 12/05/2013 2:50 PM HYDRAULIC AND PLUMBING INSTALLER 12/11/2013 4:21 PM HYDRAULIC AND PLUMBING INSTALLER Pierre Johnson MD LAB - BLOOD BANK O ALEX Performing Organization Address City/[facility]/ZIP Co de Phone Number [facility] [address] [phone] * HLA TYPING DNA LOW RESOLUTION A,B,C (12/02/2013 10:00 AM HYDRAULIC AND PLUMBING INSTALLER) ABC DNA A1 02 () [facility] ABC DNA A1 24 () [facility] ABC DNA B1 07 () [facility] ABC DNA B2 44 () [facility] ABC DNA BW1 6 () [facility] ABC DNA BW2 4 () [facility] ABC DNA C1 04 () [facility] ABC DNA C2 07 () [facility] ABC DNA Comments - () [facility] ABC DNA Methodology SSOP () [facility] ABC DNA Test Date 4 () [facility] Comment: This test was developed and its performance characteristics determined by the [facility]. ??It has not been cleared or approved by the U.S. Food and Drug Administration. ??The FDA has determined that such clearance or approval is not necessary. ??This test is used for clinical purposes. ??It should not be regarded as investigational or for research. This laboratory is certified under the Clinical Laboratory Improvement Amendments of 1988 (CLIA-88) as qualified to perform high complexity clinical laboratory testing. Performed at: ??[facility], [address] [place], [place] ??[phone] Stud Setter: Pardeep Wells MD, 12/02/2013 10:0 0 AM HYDRAULIC AND PLUMBING INSTALLER 12/02/2013 10:23 AM HYDRAULIC AND PLUMBING INSTALLER Pierre Johnson MD LAB - BLOOD BANK O ALEX Performing Organization Address [facility]/ZIP Co de Phone Number [address] [phone] * HLA TYPING CLASS II (DR,DQ) DNA (12/02/2013 10:00 AM HYDRAULIC AND PLUMBING INSTALLER) DR DQ Low Resolution DRB1-1 07 () [facility] DR DQ Low Resolution DRB1-2 15 () [facility] DR DQ Low Resolution DQB1-1 02 () [facility] DR DQ Low Resolution DQB1-2 06 () [facility] DR DQ Low Resolution DRB3-1 Negative () [facility] DR DQ Low Resolution DRB3-2 - () [facility] DR DQ Low Resolution DRB4-1 01 () [facility] DR DQ Low Resolution DRB4-2 - () [facility] DR DQ Low Resolution DRB5-1 01 () [facility] DR DQ Low Resolution DRB5-2 - () [facility] Comment DR DQ Low Resolution - () [facility] DR DQ Low Resolution methodology SSOP () [facility] DR DQ Low Resolution test date 12/10/2013 () [facility] Comment: This test was developed and its performance characteristics determined by the [facility]. ??It has not been cleared or approved by the U.S. Food and Drug Administration. ??The FDA has determined that such clearance or approval is not necessary. ??This test is used for clinical purposes. ??It should not be regarded as investigational or for research. This laboratory is certified under the Clinical Laboratory Improvement Amendments of 1988 (CLIA-88) as qualified to perform high complexity clinical laboratory testing. Performed at: ??[facility], [address] [place], [place] ??[address] Stud Setter: Pardeep Wells MD, 12/02/2013 10:0 0 AM HYDRAULIC AND PLUMBING INSTALLER 12/02/2013 10:23 AM HYDRAULIC AND PLUMBING INSTALLER Pierre Johnson MD LAB - CHEMISTRY OR DERABLES [facility] [address] [place], [place] [id number] [place] [address] * (ABNORMAL) CYTOMEGALOVIRUS ANTIBODY IGG BLOOD (12/02/2013 10:00 AM HYDRAULIC AND PLUMBING INSTALLER) Cytomegalovirus Antibody IgG 9.9(H) 0.0 - 0.8 index [facility] Comment: ? Negative ?<0.9 ? Equivocal ?0.9 - 1.0 ? Positive ?>1.0 Effective December 15, 2013 the reference interval ??for Cytomegalovirus (CMV) Ab, IgG will be changing ??to: ? Negative ?<0.60 U/mL ?Equivocal 0.60 - 0.69 U/mL ?Positive ?>0.69 U/mL Performed at: ??[facility] [address] ??[id number] Stud Setter: Milton Hook MD, Phone: ??[phone] Venous blood specimen (specimen) 12/02/2013 10:00 AM HYDRAULIC AND PLUMBING INSTALLER 12/02/2013 10:23 AM HYDRAULIC AND PLUMBING INSTALLER Pierre Johnson MD LAB - CHEMISTRY OR DERABLES Performing Organization Address City/State/[facility] Co de Phone Number [facility] [address] [place] [address] * TYPE + SCREEN PANEL (12/02/2013 10:00 AM HYDRAULIC AND PLUMBING INSTALLER) Interpretation ABO/Rh Patient O POS [facility] Antibody Screen NEGATIVE [facility] 12/02/2013 10:0 0 AM HYDRAULIC AND PLUMBING INSTALLER 12/02/2013 10:42 AM HYDRAULIC AND PLUMBING INSTALLER Pierre Johnson MD LAB - BLOOD BANK O [place] [address] [phone] * (ABNORMAL) URINALYSIS ROUTINE W/REFLEX TO CULTURE (06/22/2013 6:12 PM CDT) Color UA Yellow Straw, Yellow, Dark Yellow 06/22/2013 6:41 PM CDT [facility] Clarity UA Clear 06/22/2013 6:41 PM CDT [facility] Specific [place] UA 1.010 1.005 - 1.030 06/22/2013 6:41 PM CDT [facility] pH UA 6.5 5.0 - 8.0 06/22/2013 6:41 PM CDT [facility] Protein UA Negative Negative 06/22/2013 6:41 PM CDT [facility] Blood UA Trace(A) Negative 06/22/2013 6:41 PM CDT [facility] Leukocyte UA Negative Negative 06/22/2013 6:41 PM CDT [facility] Nitrite UA Negative Negative 06/22/2013 6:41 PM CDT [facility] Glucose UA Negative Negative 06/22/2013 6:41 PM CDT [facility] Ketone UA Negative Negative 06/22/2013 6:41 PM CDT [facility] Bilirubin UA Negative Negative 06/22/2013 6:41 PM CDT [facility] Urobilinogen UA 0.2 0.1 - 1.0 EU/dL 06/22/2013 6:41 PM CDT [facility] WBC UA Auto 0-2 0-2, 2-5 #/hpf 06/22/2013 6:41 PM CDT [facility] RBC UA Auto 0-2 0-2, 2-5 #/hpf 06/22/2013 6:41 PM CDT [facility] Epithelial Cell UA Auto 2-5 0-2, 2-5 #/hpf 06/22/2013 6:41 PM CDT [facility] Bacteria UA Auto None seen None seen 06/22/2013 6:41 PM CDT [facility] Hyaline Casts UA Auto 0-2 0 - 2 #/lpf 06/22/2013 6:41 PM CDT [facility] Reflex Status Culture not indicated 06/22/2013 6:41 PM CDT [facility] Urine URINE SPECIMEN OBTAINED BY CLEAN CATCH PROCEDURE / Unknown 06/22/2013 6:12 PM CDT 06/22/2013 6:15 PM CDT Axel Dukes MD LAB - URINALYSIS ORD ERABLES [facility] [address] [place] [address] * XR CHEST PA AND LATERAL (06/22/2013 12:04 PM CDT) Anatomical Region Laterality Modality Chest Radiographic Rosie ging 06/22/2013 12:3 1 PM CDT Narrative 06/22/2013 12:31 PM CDT Examination: Chest 2 views. Indication for examination: Fever. 2 views of the chest show no active or acute lung infiltrate. There is no pleural effusion or pneumothorax. Heart size and pulmonary vascularity appear within normal limits. Conclusion: No acute disease identified. Procedure Note Meir Coombs MD - 06/22/2013 Examination: Chest 2 views. Indication for examination: Fever. 2 views of the chest show no active or acute lung infiltrate. There is no pleural effusion or pneumothorax. Heart size and pulmonary vascularity appear within normal limits. Conclusion: No acute disease identified. Axel Dukes MD DIAGNOSTIC IMAGING O RDERABLES * (ABNORMAL) URINALYSIS ROUTINE AUTO (06/22/2013 8:52 AM CDT) Color UA Dark Yellow Straw, Yellow, Dark Yellow 06/22/2013 9:07 AM CDT [facility] Clarity UA Cloudy 06/22/2013 9:07 AM CDT [facility] Specific [place] UA 1.020 1.005 - 1.030 06/22/2013 9:07 AM CDT [facility] pH UA 5.0 5.0 - 8.0 06/22/2013 9:07 AM CDT [facility] Protein UA Trace(A) Negative 06/22/2013 9:07 AM CDT [facility] Blood UA 1+(A) Negative 06/22/2013 9:07 AM CDT [facility] Leukocyte UA 1+(A) Negative 06/22/2013 9:07 AM CDT [facility] Nitrite UA Negative Negative 06/22/2013 9:07 AM CDT [facility] Glucose UA Negative Negative 06/22/2013 9:07 AM CDT [facility] Ketone UA Negative Negative 06/22/2013 9:07 AM CDT [facility] Bilirubin UA Negative Negative 06/22/2013 9:07 AM CDT [facility] Urobilinogen UA 0.2 0.1 - 1.0 EU/dL 06/22/2013 9:07 AM CDT [facility] WBC UA Auto 10-20(A) 0-2, 2-5 #/hpf 06/22/2013 9:07 AM CDT [facility] RBC UA Auto 2-5 0-2, 2-5 #/hpf 06/22/2013 9:07 AM CDT [facility] Epithelial Cell UA Auto 20-50(A) 0-2, 2-5 #/hpf 06/22/2013 9:07 AM CDT [facility] Bacteria UA Auto 1+(A) None seen 06/22/20 13 9:07 AM CDT [facility] Hyaline Casts UA Auto 2-5(A) 0 - 2 #/lpf 06/22/2013 9:07 AM T [facility] Urine URINE SPECIMEN OBTAINED BY CLEAN CATCH PROCEDURE / Unknown 06/22/2013 8:52 AM CDT 06/22/2013 8:56 AM CDT Axel Dukes MD LAB - URINALYSIS ORD ERABLES [facility] [address] [place] [address] * (ABNORMAL) CBC W/O DIFFERENTIAL (06/22/2013 8:20 AM CDT) WBC 7.6 4.4 - 10.7 x10^9/L 06/22/2013 8:34 AM CDT [facility] RBC 3.19(L) 3.80 - 5.20 x10^12/L 06/22/2013 8:34 AM CDT [facility] Hemoglobin 10.3(L) 12.0 - 15.6 g/dL 06/22/2013 8:34 AM CDT [facility] Hematocrit 31.0(L) 35.9 - 45.5 % 06/22/2013 8:34 AM CDT [facility] MCV 97.2 80.7 - 98.3 fl 06/22/2013 8:34 AM CDT [facility] MCH 32.3 26.7 - 34.0 pg 06/22/2013 8:34 AM CDT [facility] MCHC 33.2 30.8 - 35.9 gm/dL 06/22/2013 8:34 AM CDT [facility] Platelet Count 142(L) 153 - 416 x10^9/L 06/22/2013 8:34 AM CDT [facility] RDW-CV 12.4 12.1 - 14.9 % 06/22/2013 8:34 AM CDT [facility] MPV 9.4 9.4 - 12.9 fl 06/22/2013 8:34 AM CDT [facility] Blood BLOOD SPECIMEN / Unknown 06/22/2013 8:20 AM CDT 06/22/2013 8:28 AM CDT Axel Dukes MD LAB - HEMATOLOGY ORD ERABLES [facility] [address] [place] [address] * (ABNORMAL) BASIC METABOLIC PANEL (CALCIUM TOTAL) (06/22/2013 8:20 AM CDT) Glucose 116(H) 74 - 106 mg/dL 06/22/2013 8:51 AM CDT [facility] Sodium 138 136 - 145 mmol/L 06/22/2013 8:51 AM CDT [facility] Potassium 3.9 3.5 - 5.1 mmol/L 06/22/2013 8:51 AM CDT [facility] Chloride 103 98 - 107 mmol/L 06/22/2013 8:51 AM CDT [facility] CO2 27 22 - 31 mmol/L 06/22/2013 8:51 AM CDT [facility] Calcium 8.8 8.5 - 10.1 mg/dL 06/22/2013 8:51 AM CDT [facility] Anion Gap 8 5 - 15 mmol/L 06/22/2013 8:51 AM CDT [facility] BUN 10 7 - 21 mg/dL 06/22/2013 8:51 AM CDT [facility] Creatinine 0.92 0.50 - 1.30 mg/dL 06/22/2013 8:51 AM CDT [facility] eGFR by MDRD 60 ml/min/1.7 3m2 06/22/2013 8:51 AM CDT [facility] eGFR by MDRD >60 ml/min/1.7 3m2 06/22/2013 8:51 AM CDT [facility] Blood BLOOD SPECIMEN / Unknown 06/22/2013 8:20 AM CDT 06/22/2013 8:28 AM CDT Aexl Dukes MD LAB - CHEMISTRY DEV EARLY Performing Organization Address City/[facility] Co de Phone Number [facility] [address] [place] [address] * (ABNORMAL) HGB HCT PANEL (06/21/2013 2:11 AM CDT) [facility] [address] Hemoglobin 11.0(L) 12.0 - 15.6 g/dL 06/21/2013 3:12 AM CDT [facility] Hematocrit 33.4(L) 35.9 - 45.5 % 06/21/2013 3:12 AM CDT [facility] Blood BLOOD SPECIMEN / Unknown 06/21/2013 2:11 AM CDT 06/21/2013 3:05 AM CDT Capri Lamb MD LAB - HEMATOLOGY OR DERABLES Performing Organization Address City/[facility] Co de Phone Number [facility] [address] [place] [address] * XR SHOULDER 1 VW LEFT (06/20/2013 9:18 AM CDT) Anatomical Region Laterality Modality Upper Extremity Radiographic Rosie ging 06/20/2013 9:22 AM CDT Impressions 06/20/2013 9:58 AM CDT Reversed left shoulder prosthesis in grossly satisfactory alignment. Edited by Mary Ann Arguello on 06/20/2013 9:24 AM Narrative 06/20/2013 9:58 AM CDT LEFT SHOULDER SINGLE VIEW Indication: Shoulder pain. Findings: AP radiograph of the left shoulder demonstrates reversed left shoulder prosthesis. This appears to be in grossly satisfactory alignment. The acromioclavicular joint is in normal alignment. Procedure Note Sherin Becker MD - 06/20/2013 LEFT SHOULDER SINGLE VIEW Indication: Shoulder pain. Findings: AP radiograph of the left shoulder demonstrates reversed left shoulder prosthesis. This appears to be in grossly satisfactory alignment. The acromioclavicular joint is in normal alignment. IMPRESSION Reversed left shoulder prosthesis in grossly satisfactory alignment. Edited by Mary Ann Arguello on 06/20/2013 9:24 AM Capri Lamb MD DIAGNOSTIC IMAGING ORDERABLES * CT UPPER EXTREMITY NON CONTRAST LEFT (02/03/2013 12:09 PM CDT) Anatomical Region Laterality Modality Upper Extremity Computed Tomogra phy 02/03/2013 5:29 PM CDT Narrative 02/03/2013 5:29 PM CDT Examination: Post arthrogram CT left shoulder. Indication for examination: Left shoulder pain and reduced range of motion. Internal derangement. Post arthrogram CT examination of the left shoulder is performed thin-section helical technique with sagittal and coronal reconstructions. Examination of the rotator cuff reveals full-thickness tear of the rotator cuff. This appears to involve the anterior portion of the supraspinatus tendon at and proximal to its insertion. There is mild volume loss in the supraspinatus muscle. There appears to be thinning and at least partial tear of the subscapularis tendon at its insertion. No other discrete rotator cuff abnormality is identified. There is mild hypertrophic change acromioclavicular joint without definite high-grade impingement. No discrete glenoid labral tear is identified. Tendon of the long head of the biceps appears intact. There is arthritic change glenohumeral joint itself. There is no fracture or bone destruction. No significant subchondral cyst formation is identified at the glenoid. CONCLUSION: Thinning anterior margin distal supraspinatus tendon at and proximal to its insertion presumably representing focal full-thickness tear in this area. Thinning with loss of definition of the subscapularis tendon at and proximal to its insertion representing at least a partial tear. No discrete glenoid labral tear identified. No definite rotator cuff impingement identified. Arthritic change glenohumeral joint. No fracture or bone destruction. Procedure Note Meir Coombs MD - 02/03/2013 Examination: Post arthrogram CT left shoulder. Indication for examination: Left shoulder pain and reduced range of motion. Internal derangement. Post arthrogram CT examination of the left shoulder is performed thin-section helical technique with sagittal and coronal reconstructions. Examination of the rotator cuff reveals full-thickness tear of the rotator cuff. This appears to involve the anterior portion of the supraspinatus tendon at and proximal to its insertion. There is mild volume loss in the supraspinatus muscle. There appears to be thinning and at least partial tear of the subscapularis tendon at its insertion. No other discrete rotator cuff abnormality is identified. There is mild hypertrophic change acromioclavicular joint without definite high-grade impingement. No discrete glenoid labral tear is identified. Tendon of the long head of the biceps appears intact. There is arthritic change glenohumeral joint itself. There is no fracture or bone destruction. No significant subchondral cyst formation is identified at the glenoid. CONCLUSION: Thinning anterior margin distal supraspinatus tendon at and proximal to its insertion presumably representing focal full-thickness tear in this area. Thinning with loss of definition of the subscapularis tendon at and proximal to its insertion representing at least a partial tear. No discrete glenoid labral tear identified. No definite rotator cuff impingement identified. Arthritic change glenohumeral joint. No fracture or bone destruction. aCpri Lamb MD CT ORDERABLES * FL FLUORO GUIDANCE FOR NEEDLE PLACMENT (02/03/2013 11:55 AM CDT) Anatomical Region Laterality Modality Abdomen, Lung, Spine, Breast Rad iographic Imaging Impressions 02/04/2013 10:05 AM CDT Successful fluoroscopic guided left shoulder arthrogram as described above. No rotator cuff tear is seen on these images. Narrative 02/04/2013 10:05 AM CDT LEFT SHOULDER ARTHROGRAM INDICATION: Left shoulder pain. PROCEDURE/FINDINGS: Written informed consent was obtained. Following sterile prep and administration of 1% Lidocaine local anesthesia the left shoulder joint was accessed under fluoroscopic guidance with a 22 gauge needle. ??Intra-articular position was confirmed with injection of Omnipaque 180, 5 mL. Approximately 15 mL of Omnipaque 180 was injected intra-articularly. The needle was removed and hemostasis achieved immediately after. The patient tolerated the procedure well. Total fluoro time is 1.1 minutes. There is no evidence of rotator cuff tear on these images. Procedure Note Karthik Chavez MD - 02/04/2013 LEFT SHOULDER ARTHROGRAM INDICATION: Left shoulder pain. PROCEDURE/FINDINGS: Written informed consent was obtained. Following sterile prep and administration of 1% Lidocaine local anesthesia the left shoulder joint was accessed under fluoroscopic guidance with a 22 gauge needle. Intra-articular position was confirmed with injection of Omnipaque 180, 5 mL. Approximately 15 mL of Omnipaque 180 was injected intra-articularly. The needle was removed and hemostasis achieved immediately after. The patient tolerated the procedure well. Total fluoro time is 1.1 minutes. There is no evidence of rotator cuff tear on these images. IMPRESSION Successful fluoroscopic guided left shoulder arthrogram as described above. No rotator cuff tear is seen on these images. 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 Dr. Marisa Monroe M.D. Gross Report ? SPECIMEN IS RECEIVED IN FORMALIN, LABELED WITH PATIENTS NAME, LABELED `MASS RIGHT FIRST DORSAL COMPARTMENT' AND CONSISTS OF A FRAGMENT OF WHITE SOFT TISSUE WITH AN IRREGULAR SURFACE AND IRREGULAR MARGINS. THE SPECIMEN MEASURES 6 X 7 MM. ??THE MARGINS ARE INKED, THE TISSUE BISECTED AND SUBMITTED ENTIRELY IN ONE CASSETTE. ?? [facility] MICROSCOPIC EXAM ? MICROSCOPIC EXAMINATION SECTIONS OF SOFT TISSUE DISPLAY MYXOID DEGENERATIVE CHANGES. [facility] DIAGNOSIS ? DIAGNOSIS ?? [1] ??SOFT TISSUE, EXCISION -- ??MYXOID DEGENERATIVE CHANGES. [id number] [facility] Released By ?GABRIEL ORTIZ MISCELLANEOUS SAMPLE S / Unknown 08/15/2001 08/16/2001 7:13 AM HYDRAULIC AND PLUMBING INSTALLER Historical Provider LAB - PATHOLOGY/C YTOLOGY ORDERABLES Care Teams Cook Helper Preserves Relationship Specialty Start Date End Date Emile Mercado MD [address] [place] [address] PCP - General Family Medicine 06/05/13 [place] [id number] [address] [place] [id number] Orthopedic Surgery 01/22/13 [place] [id number] [address] [place] [id number] Orthopedic Surgery 03/11/15 Emmy Nolasco, PA-C [id number] [address] [place] [phone] Physician Lip Cutter And Scorer Orthopedic Surgery 12/15/20
== END 2024-11-05 11:33 | disposition home or self-care (01) ==
PROVIDERS: PCP Family Medicine
DX: M17.12 Unilateral primary osteoarthritis, left knee (principal)
CPT/HCPCS: 73562